=== PATIENT | male | born 1935 | race Caucasian/White ===

== ENCOUNTER 2016-12-19 02:25 | Emergency (ER) | payer MEDICARE, MEDICAID ==
[~2016-12-19] VITALS: Ht 172.7 cm; Wt 77.3 kg
[2016-12-19 02:31] VITALS: Ht 172.7 cm; Wt 77.3 kg
[2016-12-19 03:29] LABS: ADD SCAN DIFF NO
[2016-12-19 03:32] LABS: BASOPHILS % 0.4 % (0.0-2.0); EOSINOPHILS # 0.3 10^3/ul (0.0-0.5); EOSINOPHILS % 2.7 % (0.0-7.0); HEMOGLOBIN 8.9 g/dl (14.0-18.0); LYMPHOCYTES # 3.5 10^3/ul (0.8-2.9); MEAN CORPUSCULAR HEMOGLOBIN 28.2 pg (29.0-33.0); MEAN CORPUSCULAR HGB CONC 31.8 g/dl (32.0-37.0); MEAN CORPUSCULAR VOLUME 88.6 fl (82.0-101.0); MEAN PLATELET VOLUME 10.2 fl (7.4-10.4); MONOCYTE # 0.9 10^3/ul (0.3-0.9); MONOCYTES % 9.6 % (0.0-11.0); NEUTROPHIL # 4.7 10^3/ul (1.6-7.5); PLATELET COUNT 526 10^3/UL (140-415); RED BLOOD COUNT 3.16 10^6/ul (4.70-6.10); RED CELL DISTRIBUTION WIDTH 17.2 % (11.5-14.5); WHITE BLOOD COUNT 9.4 10^3/ul (4.8-10.8)
--- NOTE | 2016-12-19 03:47 | RADRPT ---
PROCEDURE: Noncontrast CT Head. CLINICAL INDICATION: Altered mental status TECHNIQUE: Noncontrast CT of the head was obtained. The administered radiation dose was CTDI vol = 45 mGy, DLP = 810 mGy-cm. COMPARISON: No pertinent prior examinations were submitted for comparison. FINDINGS: The ventricles and cortical sulci are moderately enlarged. There is moderate to marked decreased at tenuation within the periventricular and subcortical white matter compatible with chronic microvascu lar changes. There is no acute intracranial hemorrhage or extra-axial fluid collection. There is no mass effect . No midline shift is identified. There is no loss of lagos-white differentiation to suggest acute in farction. The orbits are within normal limits. The paranasal sinuses are well aerated. No destructive osseous lesion is identified. IMPRESSION: No acute findings. Moderate diffuse parenchymal volume loss and moderate to marked chronic microvas cular changes. RPTAT: HIKT .Gold Darling MD, MD Date Time Electronically viewed and signed by .Gold Darling MD, MD on 12/19/2016 03:46 .T/
[2016-12-19 03:49] LABS: INR 1.16; PROTIME 14.9 Sec (12.2-14.2); PT RATIO 1.2
[2016-12-19 03:51] LABS: URINE BILIRUBIN (Dip) NEGATIVE (NEGATIVE); URINE BLOOD (Dip) NEGATIVE (NEGATIVE); URINE COLOR YELLOW (YELLOW); URINE GLUCOSE (Dip) NEGATIVE (NEGATIVE); URINE KETONES (Dip) NEGATIVE (NEGATIVE); URINE LEUKOCYTE ESTERASE (Dip) NEGATIVE (NEGATIVE); URINE NITRITE (Dip) NEGATIVE (NEGATIVE); URINE UROBILINOGEN (Dip) 0.2 E.U./dL (0.1-1.0)
[2016-12-19 03:51] LABS: PARTIAL THROMBOPLASTIN TIME 41.6 Sec (25.0-35.0)
--- NOTE | 2016-12-19 03:51 | RADRPT ---
PROCEDURE: CHEST - 1 VIEW CLINICAL INDICATION: 81-year-old male with shortness of breath and sepsis. TECHNIQUE: A single frontal AP portable view of the chest was performed. The images were reviewed on a PACS workstation. COMPARISON: Chest x-ray June 11, 2016 performed at [facility]. FINDINGS: The cardiomediastinal silhouette is within normal limits. Chronic lung changes are present. There is mild left basilar subsegmental atelectasis versus scarring. There is no evidence for congestive heart failure. There is no evidence for pneumothorax. Surgical clips are seen within the esophagoga stric junction region. There appears to be mild erosion of the distal clavicles bilaterally without interval change. Degenerative changes are present within the spine. IMPRESSION: 1. Chronic lung changes. 2. Mild left basilar subsegmental atelectasis versus scarring. 3. Surgical clips within the esophagogastric junction region. .Christian Fernandes MD, MD Date Time Electronically viewed and signed by .Christian Fernandes MD, on 12/19/2016 03:51 .M/
[2016-12-19 03:55] LABS: ALANINE AMINOTRANSFERASE 109 IU/L (13-69); ALBUMIN 2.8 g/dl (3.3-4.9); ALKALINE PHOSPHATASE 232 IU/L (42-121); ANION GAP 13 (8-16); ASPARTATE AMINO TRANSFERASE 112 IU/L (15-46); BLOOD UREA NITROGEN 50 mg/dl (7-20); CALCIUM 8.5 mg/dl (8.4-10.2); CARBON DIOXIDE 27 mmol/L (21-31); CHLORIDE 109 mmol/L (97-110); CREATININE 1.17 mg/dl (0.61-1.24); GLUCOSE 110 mg/dl (70-220); POTASSIUM 4.7 mmol/L (3.5-5.1); SODIUM 144 mmol/L (135-144); TOTAL PROTEIN 7.4 g/dl (6.1-8.1)
[2016-12-19 04:20] LABS: ADD UMIC NO; URINE TOTAL PROTEIN (Dip) NEGATIVE (NEGATIVE)
[2016-12-19 04:21] LABS: TROPONIN-I < 0.012 ng/ml (0.00-0.12)
[2016-12-19 04:53] VITALS: TEMP 97.8
--- NOTE | 2016-12-19 06:34 | ERD ---
ER Documentation Chief Complaint Date/Time DATE: 12/19/16 TIME: 06:26 Chief Complaint lethargic,from [facility] This 81-year-old male who is debilitated was sent from a longterm for having more altered mental status than usual. According to paramedics all the nurse could tell them for the reason that they're sending hospitals because his eyes looked differently than they normally do. Patient himself is nonverbal at baseline. No fevers reported. No other history of present illness was sent along with the patient. ROS Unobtainable Allergies Allergies: Coded Allergies: No Known Allergy (Unverified , 12/19/16) PMhx/Soc History of Surgery: Yes (GT placement) Hx Respiratory Disorders: Yes (COPD,aspiration PNA) Hx Psychiatric Problems: Yes (dementia) Hx Miscellaneous Medical Probl: Yes (dysphagia) Smoking Status: Unknown if ever smoked Physical Exam Vitals Vital Signs Date Time Temp Pulse Resp B/P Pulse Ox O2 Delivery O2 Flow Rate FiO2 12/19/16 04:53 97.8 109 18 134/91 100 Nasal Cannula 2.0 12/19/16 02:56 Nasal Cannula 2 12/19/16 02:31 97.7 108 18 92/58 95 Physical Exam Const: [] No acute distress Head: Atraumatic Eyes: Normal Conjunctiva, EOMI, PERRLA. Patient keeps eyes open and appears to be looking at things but does not track with eyes or attempt to look at any stimulus. ENT: Normal External Ears, Nose and Mouth., Tympanic membranes within normal lives bilaterally, oropharynx within normal limits Neck: Full range of motion..~No JVD Resp: Clear to auscultation bilaterally Cardio: Regular mild tachycardia, no murmurs Abd: Soft,, non distended. Normal bowel sounds Skin: No petechiae or rashes, pale Ext: No cyanosis, or edema Neur: Awake, has some movement of extremities, does not have purposeful movement. Unable to cooperate with neuro exam Psych: Appears calm. Result Diagram: 12/19/16 0309 12/19/16 0309 Results 24 hrs Laboratory Tests Test 12/19/16 03:09 12/19/16 03:21 12/19/16 05:35 White Blood Count 9.410^3/ul Red Blood Count 3.1610^6/ul Hemoglobin 8.9g/dl Hematocrit 28.0% Mean Corpuscular Volume 88.6fl Mean Corpuscular Hemoglobin 28.2pg Mean Corpuscular Hemoglobin Concent 31.8g/dl Red Cell Distribution Width 17.2% Platelet Count 93584^3/UL Mean Platelet Volume 10.2fl Neutrophils % 50.0% Lymphocytes % 37.0% Monocytes % 9.6% Eosinophils % 2.7% Basophils % 0.4% Nucleated Red Blood Cells % 0.0/100WBC Neutrophils # 4.710^3/ul Lymphocytes # 3.510^3/ul Monocytes # 0.910^3/ul Eosinophils # 0.310^3/ul Basophils # 0.010^3/ul Nucleated Red Blood Cells # 0.010^3/ul Prothrombin Time 14.9Sec Prothrombin Time Ratio 1.2 INR International Normalized Ratio 1.16 Activated Partial Thromboplast Time 41.6Sec Sodium Level 144mmol/L Potassium Level 4.7mmol/L Chloride Level 109mmol/L Carbon Dioxide Level 27mmol/L Anion Gap 13 Blood Urea Nitrogen 50mg/dl Creatinine 1.17mg/dl Glucose Level 110mg/dl Lactic Acid Level 1.4mmol/L 1.2mmol/L Calcium Level 8.5mg/dl Total Bilirubin 0.0mg/dl Direct Bilirubin 0.00mg/dl Indirect Bilirubin 0.0mg/dl Aspartate Amino Transf (AST/SGOT) 112IU/L Alanine Aminotransferase (ALT/SGPT) 109IU/L Alkaline Phosphatase 232IU/L Troponin I < 0.012ng/ml Total Protein 7.4g/dl Albumin 2.8g/dl Globulin 4.60g/dl Albumin/Globulin Ratio 0.60 Urine Color YELLOW Urine Clarity CLEAR Urine pH 5.5 Urine Specific [place] 1.025 Urine Ketones NEGATIVE Urine Nitrite NEGATIVE Urine Bilirubin NEGATIVE Urine Urobilinogen 0.2 E.U./dL Urine Leukocyte Esterase NEGATIVE Urine Hemoglobin NEGATIVE Urine Glucose NEGATIVE% Urine Total Protein NEGATIVE Procedures/MDM 81-year-old male sent emergency room for unclear reasons. I did speak with Dr. Sims, the patient's physician. According to the description patient is not communicative at baseline and is currently at baseline. Complete workup was done for sepsis or any other acute process. The patient has no cardiac ischemia , no signs of infection with normal white count. No lactic acidosis. Patient remains with a heart rate of just over 100. I described his workup to Dr. Sims he says that there is no reason to admit the patient to the hospital. [facility] He was treated with 1 L of normal saline. EKG interpretation: Sinus tachycardia rate of 104, left anterior fascicular block, left axis deviation, no ST-T wave changes concerning for acute ischemia youth nutritional monitor interpretation: Mild sinus tachycardia alternating with normal sinus rhythm in the 90s, no arrhythmias Chest x-ray interpretation: I see no acute process, no infiltrates, no widened mediastinum, no pneumothorax, no pulmonary edema, no fractures. CT head interpretation: I see no acute process, no hemorrhage, no mass effect no midline shift, no skull fractures Departure Diagnosis: Primary Impression: Altered level of consciousness Additional Impressions: Thrombocytosis Anemia Protein calorie malnutrition BRADLY HAWLEY DO Dec 19, 2016 06:34
[2016-12-19 08:58] VITALS: BP 123/71; PULSE 101; RESP 18
== END 2016-12-19 09:09 | disposition home or self-care (01) ==
LOC: E/R 02:25
DX: R40.4 Transient alteration of awareness (principal); D47.3 Essential (hemorrhagic) thrombocythemia; D64.9 Anemia, unspecified; E46 Unspecified protein-calorie malnutrition; J44.9 Chronic obstructive pulmonary disease, unspecified; R40.2142 Coma scale, eyes open, spontaneous, at arrival to emergency department; R40.2352 Coma scale, best motor response, localizes pain, at arrival to emergency department; R40.2212 Coma scale, best verbal response, none, at arrival to emergency department
CPT/HCPCS: 36415; 70450; 71010; 80053; 81003; 83605; 84484; 85025; 85610; 85730; 87040; 87086; 93005

== ENCOUNTER 2017-03-05 01:59 | Inpatient (IN) | payer MEDICAID, MEDICARE ==
[2017-03-05] VITALS (60 sets, daily range): BP systolic 63–121; BP diastolic 38–88; PULSE 85–128; RESP 16–28; TEMP 98.5; Ht 165.1 cm; Wt 54.7 kg
[~2017-03-05] VITALS: Ht 165.1 cm; Wt 54.7 kg
[2017-03-05] MEDS ORDERED: PIPER-TAZO 3.375 GM IV (PMX) 100 ML IVPB STA (02:07)
[2017-03-05] MEDS ORDERED: ONDANSETRON 4 MG INJ IV STA (02:48)
[2017-03-05 02:50] LABS: ADD SCAN DIFF NO
[2017-03-05 02:56] LABS: BASOPHILS % 0.2 % (0.0-2.0); EOSINOPHILS % 0.2 % (0.0-7.0); HEMATOCRIT 34.7 % (42.0-52.0); HEMOGLOBIN 11.1 g/dl (14.0-18.0); LYMPHOCYTES # 2.1 10^3/ul (0.8-2.9); LYMPHOCYTES % 12.3 % (15.0-51.0); MEAN CORPUSCULAR HEMOGLOBIN 29.1 pg (29.0-33.0); MEAN CORPUSCULAR VOLUME 90.8 fl (82.0-101.0); MEAN PLATELET VOLUME 10.3 fl (7.4-10.4); MONOCYTE # 1.1 10^3/ul (0.3-0.9); MONOCYTES % 6.3 % (0.0-11.0); NEUTROPHIL # 14.1 10^3/ul (1.6-7.5); NEUTROPHILS % 80.5 % (39.0-77.0); PLATELET COUNT 593 10^3/UL (140-415); RED BLOOD COUNT 3.82 10^6/ul (4.70-6.10); RED CELL DISTRIBUTION WIDTH 15.4 % (11.5-14.5); WHITE BLOOD COUNT 17.4 10^3/ul (4.8-10.8)
[2017-03-05] MEDS ORDERED: SOD CHLORIDE 0.9% 500 ML IV ONE ×4 (03:00→14:00)
[2017-03-05] MEDS ORDERED: SOD CHLORIDE 0.9% 1,000 ML IV ONE (03:00)
[2017-03-05 03:12] LABS: ADD UMIC YES; UR ASCORBIC ACID 40 mg/dL (NEGATIVE); UR BACTERIA MODERATE /HPF (NONE SEEN); UR BILIRUBIN (Dip) NEGATIVE (NEGATIVE); UR BLOOD (Dip) NEGATIVE (NEGATIVE); UR CLARITY SLIGHTLY CLOUDY (CLEAR); UR COLOR YELLOW (YELLOW); UR GLUCOSE (Dip) NEGATIVE (NEGATIVE); UR KETONES (Dip) NEGATIVE (NEGATIVE); UR LEUKOCYTE ESTERASE (Dip) 1+ Leu/ul (NEGATIVE); UR MUCUS FEW /HPF (NONE SEEN); UR NITRITE (Dip) NEGATIVE (NEGATIVE); UR RBC 6 /HPF (0-5); UR SPECIFIC GRAVITY (Dip) 1.023 (1.003-1.030); UR TOTAL PROTEIN (Dip) 1+ mg/dl (NEGATIVE); UR UROBILINOGEN (Dip) NEGATIVE (NEGATIVE)
[2017-03-05 03:17] LABS: ALANINE AMINOTRANSFERASE 108 IU/L (13-69); ALBUMIN 4.2 g/dl (3.3-4.9); ALBUMIN/GLOBULIN RATIO 0.95; ALKALINE PHOSPHATASE 193 IU/L (42-121); ANION GAP 19 (8-16); ASPARTATE AMINO TRANSFERASE 84 IU/L (15-46); BLOOD UREA NITROGEN 47 mg/dl (7-20); CALCIUM 9.4 mg/dl (8.4-10.2); CARBON DIOXIDE 26 mmol/L (21-31); CHLORIDE 103 mmol/L (97-110); GLUCOSE 121 mg/dl (70-220); SODIUM 143 mmol/L (135-144); TOTAL PROTEIN 8.6 g/dl (6.1-8.1)
[2017-03-05 03:33] LABS: TROPONIN-I < 0.012 ng/ml (0.00-0.12)
--- NOTE | 2017-03-05 03:44 | RADRPT ---
PROCEDURE: XR Chest. CLINICAL INDICATION: Sepsis TECHNIQUE: Portable single view of the chest COMPARISON: 12/19/2016 FINDINGS: Top normal heart size and clips about the epigastrium again seen. Aortic calcification. Increased interstitial markings of the lungs is again seen but no definite focal infiltrate, pleural effusion, or overt congestive heart failure. Mild degenerative change of the spine and shoulders. IMPRESSION: Aortic atherosclerosis. Interstitial prominence of the lungs which may be due to a degree of mild pu lmonary fibrosis. No definite alveolar infiltrate. RPTAT: HLBE Physician Krupa Date Time Electronically viewed and signed by Katherine Teran Physician on 03/05/2017 03:43 LE/
[2017-03-05] MEDS ORDERED: ACETAMINOPHEN 325 MG TAB PO PRN (04:00)
[2017-03-05] MEDS ORDERED: ONDANSETRON 4 MG INJ IV PRN ×2 (04:00→05:00)
[2017-03-05 04:17] LABS: INR 1.04; PROTIME 13.6 Sec (12.2-14.2); PT RATIO 1.1
[2017-03-05 04:18] LABS: PARTIAL THROMBOPLASTIN TIME 35.5 Sec (25.0-35.0)
[2017-03-05] MEDS: SOD CHLORIDE 0.9% 1,000 ML IV SCH ×3 (04:36→20:52)
--- NOTE | 2017-03-05 04:41 | RADRPT ---
PROCEDURE: CT ABDOMEN/PELVIS WITHOUT CONTRAST CLINICAL INDICATION: 81-year-old male with abdominal pain, vomiting and sepsis. TECHNIQUE: The study was performed utilizing a [employer] VCT 64-slice CT scanner. Direct axia l sections were obtained through the abdomen and pelvis without the use of intravenous contrast mate rial. Sagittal and coronal reformations were obtained. One or more of the following dose reduction t echniques were utilized: automated exposure control, adjustment of the mA and/or kV according to pat ient's size or use of iterative reconstruction technique. The images were reviewed on a PACS workst [employer]. CTD/vol = 12.1 mGy; Total Exam DLP = 626.3 mGy-cm. COMPARISON: None. FINDINGS: Extensive coronary artery calcifications are partially visualized. There is trace pericardial effus ion. There is evidence for fibrotic changes within the lung bases. There is no evidence for signif icant pleural effusion. The liver has a normal size and contour without focal areas of abnormal den sity. No intrahepatic nor extrahepatic biliary ductal dilatation is seen. The gallbladder demonstrat es no wall thickening nor pericholecystic fluid. No biliary stones are evident. The pancreas is with out areas of abnormal attenuation. The spleen is identified and has a normal size without abnormal density. The adrenal glands are unremarkable. There is a right lower pole renal cyst present measuri ng approximately 2.8 x 3.5 x 3.1 cm with small peripheral calcification (Bosniak type 2). The left kidney is without abnormal density, calculi or obstruction. No hydroureteronephrosis nor nephrourete rolithiasis is evident. The urinary bladder is decompressed and contains a Mercer catheter. Multiple surgical clips are seen within the esophagogastric junction region creating artifact. There is a pe rcutaneous gastrostomy tube within the gastric antrum region of the stomach. There is mild retained stool throughout the colon with large fecal impaction measuring approximately 14.6 x 9.8 x 8.8 cm. T here are small diverticula identified scattered throughout the colon but without surrounding inflamm atory changes. The appendix is visualized and is without abnormal thickening or surrounding inflamma tory reaction. There is no significant free fluid. A penile implant is partially visualized. The ao rtoiliac vessels are diffusely calcified but without aneurysmal dilatation. Degenerative changes are present throughout the spine. Dystrophic calcification is seen adjacent to the posterior right acet abular region. Dystrophic calcification is identified anterior to the hip regions bilaterally. IMPRESSION: 1. Retained stool throughout the colon with large fecal impaction. 2. Gastrostomy tube within the stomach. 3. Minimal diffuse colonic diverticulosis. 4. No CT evidence for appendicitis. 5. Right lower pole renal cyst (Bosniak type 2). 6. Decompressed bladder containing a Mercer catheter. 7. Numerous surgical clips within the esophagogastric junction region. 8. Fibrotic changes within the lung bases. 9. Extensive vascular calcifications. 10. Penile implant. 12. Degenerative changes within the spine. .Christian Fernandes MD, MD Date Time Electronically viewed and signed by .Christian Fernandes MD, MD on 03/05/2017 04:41 .Roberth/
[2017-03-05] MEDS ORDERED: ACETAMINOPHEN 650 MG SUPP PR PRN (05:00)
[2017-03-05] MEDS ORDERED: VANCOMYCIN IV PER PHARMACY XX SCH (05:00)
--- NOTE | 2017-03-05 05:36 | ERA ---
ER Documentation Chief Complaint Date/Time DATE: 03/05/17 TIME: 05:28 Chief Complaint [facility] DUE TO LOW SPO2; CURRENTLY BEING TREATED W/ ABX HPI C1-year-old male was brought in by paramedics from his longterm secondary to lower oxygen saturation. Patient is normally on 2 L of oxygen. And the lowest oxygen saturation a paramedics got was 90% on room air. Patient is nonverbal at baseline and has contractures of his body at baseline. Incomplete paperwork was sent with the patient and her only 3 pages 1 of them is a vancomycin trough. Other medications are unknown. Is also not known what infection the patient was being treated for. ROS Unobtainable Allergies Allergies: Coded Allergies: No Known Allergy (Unverified , 12/19/16) PMhx/Soc History of Surgery: Yes (GT placement) Hx Respiratory Disorders: Yes (COPD,aspiration PNA) Hx Psychiatric Problems: Yes (dementia) Hx Miscellaneous Medical Probl: Yes (dysphagia) Smoking Status: Unknown if ever smoked Physical Exam Vitals Vital Signs Date Time Temp Pulse Resp B/P Pulse Ox O2 Delivery O2 Flow Rate FiO2 03/05/17 02:10 99.5 141 30 149/133 100 Physical Exam Const: [] Moderate distress Head: Atraumatic Eyes: Normal Conjunctiva, EOMI, PRL ENT: Normal External Ears, Nose and Mouth. Dry mucous membranes of the mouth. Neck: Supple, no JVD Resp: Decreased bibasilar breath sounds, mild tachypnea Cardio: Regular tachycardia, no murmurs Abd: Soft, non tender, non distended. Normal bowel sounds Skin: No petechiae or rashes Back: No deformities. Ext: No cyanosis, or edema Neur: Awake, nonverbal, unable to perform any neuro exam as patient cannot cooperate. Unknown if he is moving all of his extremities Result Diagram: 03/05/17 0230 03/05/17 0230 Results 24 hrs Laboratory Tests Test 03/05/17 02:30 White Blood Count 17.410^3/ul Red Blood Count 3.8210^6/ul Hemoglobin 11.1g/dl Hematocrit 34.7% Mean Corpuscular Volume 90.8fl Mean Corpuscular Hemoglobin 29.1pg Mean Corpuscular Hemoglobin Concent 32.0g/dl Red Cell Distribution Width 15.4% Platelet Count 65484^3/UL Mean Platelet Volume 10.3fl Neutrophils % 80.5% Lymphocytes % 12.3% Monocytes % 6.3% Eosinophils % 0.2% Basophils % 0.2% Nucleated Red Blood Cells % 0.0/100WBC Neutrophils # 14.110^3/ul Lymphocytes # 2.110^3/ul Monocytes # 1.110^3/ul Eosinophils # 0.010^3/ul Basophils # 0.010^3/ul Nucleated Red Blood Cells # 0.010^3/ul Prothrombin Time 13.6Sec Prothrombin Time Ratio 1.1 INR International Normalized Ratio 1.04 Activated Partial Thromboplast Time 35.5Sec Urine Color YELLOW Urine Clarity SLIGHTLY CLOUDY Urine pH 7.0 Urine Specific [place] 1.023 Urine Ketones NEGATIVEmg/dL Urine Nitrite NEGATIVEmg/dL Urine Bilirubin NEGATIVEmg/dL Urine Urobilinogen NEGATIVEmg/dL Urine Leukocyte Esterase 1+Tomi/ul Urine Microscopic RBC 6/HPF Urine Microscopic WBC 19/HPF Urine Bacteria MODERATE/HPF Urine Mucus FEW/HPF Urine Hemoglobin NEGATIVEmg/dL Urine Glucose NEGATIVEmg/dL Urine Total Protein 1+mg/dl Sodium Level 143mmol/L Potassium Level 5.0mmol/L Chloride Level 103mmol/L Carbon Dioxide Level 26mmol/L Anion Gap 19 Blood Urea Nitrogen 47mg/dl Creatinine 1.00mg/dl Glucose Level 121mg/dl Lactic Acid Level 3.4mmol/L Calcium Level 9.4mg/dl Total Bilirubin 0.0mg/dl Direct Bilirubin 0.00mg/dl Indirect Bilirubin 0.0mg/dl Aspartate Amino Transf (AST/SGOT) 84IU/L Alanine Aminotransferase (ALT/SGPT) 108IU/L Alkaline Phosphatase 193IU/L Troponin I < 0.012ng/ml Total Protein 8.6g/dl Albumin 4.2g/dl Globulin 4.40g/dl Albumin/Globulin Ratio 0.95 Current Medications Medications (Trade) Dose Ordered Sig/Killian Route PRN Reason Start Time Stop Time Status Last Admin Dose Admin Piperacillin Sod/ Tazobactam Sod 100 ml @ 200 mls/hr ONCE STAT IVPB 03/05/17 02:07 03/05/17 02:36 DC 03/05/17 02:54 Sodium Chloride 1,000 ml @ 1,000 mls/hr Q1H ONCE IV 03/05/17 03:00 03/05/17 03:59 DC 03/05/17 02:54 Sodium Chloride (NS) 500 ml @ 500 mls/hr Q1H ONCE IV 03/05/17 03:00 03/05/17 03:59 DC 03/05/17 02:55 Ondansetron HCl 4 mg 4 mg ONCE STAT IV 03/05/17 02:48 03/05/17 02:49 DC 03/05/17 02:54 Sodium Chloride (NS) 500 ml @ 500 mls/hr Q1H ONCE IV 03/05/17 03:30 03/05/17 04:29 DC 03/05/17 04:38 Ondansetron HCl (Zofran Inj) 4 mg BRIDGE ORDER PRN IV NAUSEA AND/OR VOMITING 03/05/17 04:00 03/05/17 04:45 DC Acetaminophen 650 mg 650 mg ER BRIDGE PRN PO MILD PAIN/FEVER 03/05/17 04:00 03/05/17 04:45 DC Sodium Chloride (NS) 1,000 ml @ 70 mls/hr [id number] IV 03/05/17 04:36 Ondansetron HCl (Zofran Inj) 4 mg Q6H PRN IV NAUSEA AND/OR VOMITING 03/05/17 05:00 Acetaminophen (Tylenol Supp) 650 mg Q4H PRN SD PAIN LEVEL 1-3 OR FEVER 03/05/17 05:00 Pantoprazole (Protonix Iv) 40 mg DAILY@06 IV 03/05/17 06:00 Vancomycin HCl VANCOMYCIN PER PHARMACY PER PROTOCOL XX 03/05/17 05:00 UNV Piperacillin Sod/ Tazobactam Sod (Zosyn 2.25gm/ 50ml (Pmx)) 50 ml @ 100 mls/hr Q6 IVPB 03/05/17 06:00 Procedures/MDM UTI with sepsis and unfortunate debilitated patient. Patient was given Zosyn immediately. Also given 30 cc/kg of IV fluid as well as an additional 500 mL. Patient's heart rate only mildly improved with fluid administration. Oxygen saturation remained in the 90s on room air. Does have elevated liver function tests. Abdomen pelvis CT shows no infectious process but positive for severe constipation with impaction. No apparent pneumonia on basilar CAT scan as well as chest x-ray. Spoke with Dr. Figueroa will be admitting the patient and prefers to the patient go to the ICU. EKG interpretation: Sinus tachycardia rate of 145, ST depressions in precordial leads suspicious for infection, possibly rate related, left axis deviation, normal intervals radiation monitor interpretation: Sinus tachycardia without other arrhythmia arrhythmia Chest x-ray: I see no acute process, no infiltrates, no pulmonary edema, no pneumothorax, no fractures CT abdomen pelvis interpretation: Severe constipation, I see no obvious obstruction, no abnormal fat stranding, no free air, no acute fractures Critical care time 43 minutes: This includes treatment of severe sepsis and debilitated male, very careful fluid administration, early antibiotic administration, chart review, multiple visits patient's bedside to reassess status, treatment of unstable vital signs, discussion with admitting doctor. This does not include any billable procedure Departure Diagnosis: Primary Impression: Sepsis secondary to UTI Additional Impressions: Dehydration Lactic acidosis Condition: Critical BRADLY HAWLEY DO Mar 05, 2017 05:36
[2017-03-05] MEDS ORDERED: VANCOMYCIN 1 GM in NS 250 ML IVPB SCH (07:00)
--- NOTE | 2017-03-05 07:31 | HP ---
Date/Time of Note Date/Time of Note DATE: 03/05/17 TIME: 07:11 Assessment/Plan VTE Prophylaxis VTE Prophylaxis Intervention: SCD's Assessment/Plan Chief Complaint/Hosp Course This is a 81-year-old male being admitted to the ICU floor for: #1 Urosepsis: This likely to be catheter induced as patient did present with a Montejo catheter. Patient was previously on antibiotics for an unknown cause as well. At the current time we will treat patient with broad-spectrum antibiotics of IV Vanco and Zosyn. Renally dose. Await urine and blood cultures. Switch out montejo catheter. #2 respiratory distress: Patient initially was found to be desatting down to the 70s. As per the nurse when patient turned to his side he did vomit and subsequently his respirations and oxygen saturation improved. Likely could be a component of aspiration pneumonia. Patient is currently already right now on IV vancomycin and Zosyn. Chest x-ray did not show any overt signs of pneumonia. There were some possible signs of pulmonary fibrosis. CT of the abdomen and pelvis did not show any overt signs of any pneumonia either as well. #3 tachycardia: This likely could be secondary to patient's infectious process. His EKG did show some ST depressions which likely could be due secondary to demand. Will trend troponins. Provide gentle IV fluid hydration and antibiotic support. Consult cardiology. #4 lactic acidosis: Likely secondary to #1 and #2. Will continue to trend. Provide IV fluid hydration and antibiotic. #5 dementia: Patient is nonverbal and unable to follow commands. This is a very unfortunate situation for this patient, I feel that that he likely does not have much of a quality of life at the nursing facility even prior to his current infectious process. Patient likely will benefit from palliative care consult for advanced directives as well as goals of care likely will need to get in touch with the family. Will consult case management/social work to help us in getting in touch with any family members to discuss the patient case and goals of care. #6 Fecal impaction: once stable from infectious standpoint, will need to address with stool softeners and possible GI consult. #6 DVT and GI prophylaxis: SCDs, Protonix Further treatment strategy will be implemented as per the clinical course. We will need to obtain medical records from his nursing facility and list of medications. Greater than 40 minutes of critical care time was spent on the patient and performed a history and physical and the assessment and plan. Problems: HPI/ROS Admit Date/Time Admit Date/Time Hx of Present Illness Chief complaint: Oxygen desaturation This is a-year-old male was brought in by paramedics from his residential secondary to lower oxygen saturation. Patient is normally on 2 L of oxygen. And the lowest oxygen saturation the paramedics got was 90% on room air. Patient is nonverbal at baseline and has contractures of his body at baseline. Incomplete paperwork was sent with the patient and there was a Vanco trough order. Other medications are unknown. Is also not known what infection the patient was being treated for. Of note there is no advanced directive for pulse form in the patient's chart. Apparently the patient's son did call the ED however no information was able to be obtained. Phone number of the son was not known. Allergies: NKDA Medications: Unknown ROS Subjective hx not possible: pt non-verbal, pt critical status PMH/Family/Social Past Medical History Dementia, COPD, aspiration pneumonia (this was based on previous EMR documentation from her previous visit) Past Surgical History Unknown and unable to obtain at the patient secondary to his clinical condition Family History Significant Family History: other (Unknown and unable to obtain secondary to patient's clinical condition) Social History Unknown and unable to obtain secondary to patient's clinical condition Smoking Status: Unknown if ever smoked Exam/Review of Systems Vital Signs Vitals Vital Signs Date Time Temp Pulse Resp B/P Pulse Ox O2 Delivery O2 Flow Rate FiO2 03/05/17 06:35 101.9 134 20 101/44 95 Room Air Exam Exam General: Patient is lying in bed, he is awake however he does not respond to verbal commands, he does appear contracted, he is also mumbling HEENT: Atraumatic, normocephalic. The pupils are equal, round and reactive. Extraocular motor are intact Neck: Supple with full range of motion. No rigidity or meningismus Chest: Nontender Lungs: Clear to auscultation bilaterally no crackles rales or wheezing Heart: Normal S1-S2, Regular rhythm and rate. No murmur, S3, or S4 Abdomen: Soft , G-tube in place, nondistended , bowel sounds are present. No guarding no rebound tenderness , No masses or organomegaly. No costovertebral temporal angle mass Extremities: Normal to inspection, no edema no cyanosis Neurologic: Awake, though patient is nonverbal and not able to appropriately respond to questions or follow commands this likely secondary to patient's baseline dementia as well as possible infectious process at this time. Genitourinary: Montejo catheter in place which was from the nursing facility, cloudy urine Additional Comments EKG interpretation: Sinus tachycardia rate of 145, ST depressions in precordial leads suspicious for infection, possibly rate related, left axis deviation, normal intervals property assessment monitor interpretation: Sinus tachycardia without other arrhythmia arrhythmia As per ED physician documentation PROCEDURE: CT ABDOMEN/PELVIS WITHOUT CONTRAST CLINICAL INDICATION: 81-year-old male with abdominal pain, vomiting and sepsis. TECHNIQUE: The study was performed utilizing a [employer] 64-slice CT scanner. Direct axial sections were obtained through the abdomen and pelvis without the use of intravenous contrast material. Sagittal and coronal reformations were obtained. One or more of the following dose reduction techniques were utilized: automated exposure control, adjustment of the mA and/ or kV according to patient's size or use of iterative reconstruction technique. The images were reviewed on a PACS workstation. CTD/vol = 12.1 mGy; Total Exam DLP = 626.3 mGy-cm. COMPARISON: None. FINDINGS: Extensive coronary artery calcifications are partially visualized. There is trace pericardial effusion. There is evidence for fibrotic changes within the lung bases. There is no evidence for significant pleural effusion. The liver has a normal size and contour without focal areas of abnormal density. No intrahepatic nor extrahepatic biliary ductal dilatation is seen. The gallbladder demonstrates no wall thickening nor pericholecystic fluid. No biliary stones are evident. The pancreas is without areas of abnormal attenuation. The spleen is identified and has a normal size without abnormal density. The adrenal glands are unremarkable. There is a right lower pole renal cyst present measuring approximately 2.8 x 3.5 x 3.1 cm with small peripheral calcification (Bosniak type 2). The left kidney is without abnormal density, calculi or obstruction. No hydroureteronephrosis nor nephroureterolithiasis is evident. The urinary bladder is decompressed and contains a Montejo catheter. Multiple surgical clips are seen within the esophagogastric junction region creating artifact. There is a percutaneous gastrostomy tube within the gastric antrum region of the stomach. There is mild retained stool throughout the colon with large fecal impaction measuring approximately 14.6 x 9.8 x 8.8 cm. There are small diverticula identified scattered throughout the colon but without surrounding inflammatory changes. The appendix is visualized and is without abnormal thickening or surrounding inflammatory reaction. There is no significant free fluid. A penile implant is partially visualized. The aortoiliac vessels are diffusely calcified but without aneurysmal dilatation. Degenerative changes are present throughout the spine. Dystrophic calcification is seen adjacent to the posterior right acetabular region. Dystrophic calcification is identified anterior to the hip regions bilaterally. IMPRESSION: 1. Retained stool throughout the colon with large fecal impaction. 2. Gastrostomy tube within the stomach. 3. Minimal diffuse colonic diverticulosis. 4. No CT evidence for appendicitis. 5. Right lower pole renal cyst (Bosniak type 2). 6. Decompressed bladder containing a Montejo catheter. 7. Numerous surgical clips within the esophagogastric junction region. 8. Fibrotic changes within the lung bases. 9. Extensive vascular calcifications. 10. Penile implant. 12. Degenerative changes within the spine. .Christian Fernandes MD, MD Date Time Electronically viewed and signed by .Christian Fernandes MD, MD on 03/05/2017 04:41 PROCEDURE: XR Chest. CLINICAL INDICATION: Sepsis TECHNIQUE: Portable single view of the chest COMPARISON: 12/19/2016 FINDINGS: Top normal heart size and clips about the epigastrium again seen. Aortic calcification. Increased interstitial markings of the lungs is again seen but no definite focal infiltrate, pleural effusion, or overt congestive heart failure. Mild degenerative change of the spine and shoulders. IMPRESSION: Aortic atherosclerosis. Interstitial prominence of the lungs which may be due to a degree of mild pulmonary fibrosis. No definite alveolar infiltrate. RPTAT: [facility] Physician Krupa Date Time Electronically viewed and signed by Physician Krupa on 03/05/2017 03 :43 Labs Result Diagram: 03/05/17 0230 03/05/17 0230 Medications Medications Current Medications Sodium Chloride (NS) 1,000 ml @ 70 mls/hr [id number] IV ; Start 03/05/17 at 04:36 Ondansetron HCl (Zofran Inj) 4 mg Q6H PRN IV NAUSEA AND/OR VOMITING; Start 03/05 at 05:00 Acetaminophen (Tylenol Supp) 650 mg Q4H PRN [place] PAIN LEVEL 1-3 OR FEVER Last administered on 03/05/17t 06:54; Admin Dose 650 MG; Start 03/05/17 at 05:00 Pantoprazole 40 mg 40 mg DAILY@06 IV ; Start 03/05/17 at 06:00 Piperacillin Sod/ Tazobactam Sod 50 ml @ 100 mls/hr Q6 IVPB ; Start 03/05/17 at 06:00 Vancomycin HCl 250 ml @ 125 mls/hr ONCE IVPB ; Start 03/05/17 at 07:00; Stop 03/05/17 at 08:59 Vancomycin HCl/ Sodium Chloride (Vancocin/NS) 150 ml @ 75 mls/hr Q24H IVPB ; Start 03/06/17 at 07:00 AILYN OMER Mar 05, 2017 07:21
[2017-03-05] MEDS: PANTOPRAZOLE 40 MG INJ IV SCH (10:10)
[2017-03-05] MEDS: PIPER-TAZO 2.25 GM (PMX) 50 ML IVPB SCH ×3 (10:10→17:18)
[2017-03-05] MEDS ORDERED: NORepinephrine 8MG/250 ML (PMX 250 ML IV SCH ×2 (11:00)
--- NOTE | 2017-03-05 12:48 | CONS ---
Date/Time of Note Date/Time of Note DATE: 03/05/17 TIME: 12:43 Assessment/Plan Assessment/Plan Additional Assessment/Plan Severe sepsis Sinus tachycardia Encephalopathy Debilitated from nursing facility -Heart rate currently sinus tachycardia in the low 110s, tachycardia likely manifestation of patient's severe sepsis. We will continue IV fluids, blood pressure does not respond to fluid resuscitation, would consider initiation of IV Levophed for assistance. Antibiotics as per primary team. Withhold any antihypertensives at the current time. Check echocardiogram to evaluate LV function. Consultation Date/Type/Reason Admit Date/Time Type of Consultation: cv Reason for Consultation Tachycardia Hx of Present Illness This is an 81-year-old male from snf facility who is nonverbal with history obtained the medical chart as well as the staff. Patient transferred from nursing facility to the emergency room secondary to desaturation. Patient was on vancomycin at the nursing facility for unknown etiology. Patient also with an indwelling Mer[place] and this was changed out as well. Patient with episodes of tachycardia and for this reason cardiology consultation was requested. Patient currently being seen in the ICU. As per nursing staff present, blood pressure has been labile but responding to IV fluids. Unable to be performed at the current time given patient nonverbal Past Medical History Encephalopathy Hypertension Family History Significant Family History: no pertinent family hx Social History Alcohol Use: other (Unknown) Smoking Status: Unknown if ever smoked Other Social History From snf facility Exam/Review of Systems Vital Signs Vitals Vital Signs Date Time Temp Pulse Resp B/P Pulse Ox O2 Delivery O2 Flow Rate FiO2 03/05/17 08:12 123 20 102/67 98 Room Air 03/05/17 07:26 98.5 Exam Occasional tachypnea, no response to verbal stimuli, contracted Constitutional: frail Head: normocephalic Respiratory: other (Coarse breath sounds bilaterally, no wheezing) Cardiovascular: other (S1-S2 heard), regular rate and rhythm (Tachycardia) Gastrointestinal: bowel sounds, non-tender, soft Extremities: edema Results Result Diagram: 03/05/17 0230 03/05/17 0230 Results 24 hrs Laboratory Tests Test 03/05/17 02:30 03/05/17 05:31 03/05/17 10:37 White Blood Count 17.4 #H Red Blood Count 3.82 #L Hemoglobin 11.1 #L Hematocrit 34.7 #L Mean Corpuscular Volume 90.8 Mean Corpuscular Hemoglobin 29.1 Mean Corpuscular Hemoglobin Concent 32.0 Red Cell Distribution Width 15.4 H Platelet Count 593 H Mean Platelet Volume 10.3 Neutrophils % 80.5 H Lymphocytes % 12.3 L Monocytes % 6.3 Eosinophils % 0.2 Basophils % 0.2 Nucleated Red Blood Cells % 0.0 Neutrophils # 14.1 H Lymphocytes # 2.1 Monocytes # 1.1 H Eosinophils # 0.0 Basophils # 0.0 Nucleated Red Blood Cells # 0.0 Prothrombin Time 13.6 Prothrombin Time Ratio 1.1 INR International Normalized Ratio 1.04 Activated Partial Thromboplast Time 35.5 H Urine Color YELLOW Urine Clarity SLIGHTLY CLOUDY A Urine pH 7.0 Urine Specific [place] 1.023 Urine Ketones NEGATIVE Urine Nitrite NEGATIVE Urine Bilirubin NEGATIVE Urine Urobilinogen NEGATIVE Urine Leukocyte Esterase 1+ H Urine Microscopic RBC 6 H Urine Microscopic WBC 19 H Urine Bacteria MODERATE Urine Mucus FEW A Urine Hemoglobin NEGATIVE Urine Glucose NEGATIVE Urine Total Protein 1+ H Sodium Level 143 Potassium Level 5.0 Chloride Level 103 Carbon Dioxide Level 26 Anion Gap 19 H Blood Urea Nitrogen 47 H Creatinine 1.00 Glucose Level 121 Lactic Acid Level 3.4 H 2.3 H 2.4 H Calcium Level 9.4 Total Bilirubin 0.0 L Direct Bilirubin 0.00 Indirect Bilirubin 0.0 Aspartate Amino Transf (AST/SGOT) 84 H Alanine Aminotransferase (ALT/SGPT) 108 H Alkaline Phosphatase 193 H Troponin I < 0.012 Total Protein 8.6 H Albumin 4.2 Globulin 4.40 H Albumin/Globulin Ratio 0.95 Medications Medications Current Medications Sodium Chloride (NS) 1,000 ml @ 125 mls/hr Q8H IV Last administered on 04:36; Admin Dose 70 MLS/HR; Start 03/05/17 at 04:36 Ondansetron HCl (Zofran Inj) 4 mg Q6H PRN IV NAUSEA AND/OR VOMITING; Start 03/05 at 05:00 Acetaminophen (Tylenol Supp) 650 mg Q4H PRN [place] PAIN LEVEL 1-3 OR FEVER Last administered on 03/05/17 06:54; Admin Dose 650 MG; Start 03/05/17 at 05:00 Pantoprazole 40 mg 40 mg DAILY@06 IV Last administered on 03/05/17 10:10; Admin Dose 40 MG; Start 03/05/17 at 06:00 Piperacillin Sod/ Tazobactam Sod (Zosyn 2.25gm/ 50ml (Pmx)) 50 ml @ 100 mls/hr Q6 IVPB Last administered on 03/05/17t 10:10; Admin Dose 100 MLS/HR; Start at 06:00 Miscellaneous Information RANDOM VANCOMYCIN LEVEL 7... ONCE ONCE XX ; Start 06/13 at 05:00; Stop 03/06/17 at 05:01 Norepinephrine 250 ml @ 1.875 mls/ hr TITRATE IV ; Start 03/05/17 at 11:00 Sodium Chloride (NS) 500 ml @ 500 mls/hr Q1H ONCE IV ; Start 03/05/17 at 14:00; Stop 03/05/17 at 14:59 Procedures Procedures ECG done at 2:51 AM with sinus tachycardia at 145 bpm, QRS 60 ms, lateral ST segment depressions Bowen Ramirez DO Mar 05, 2017 12:48
[2017-03-05 13:11] LABS: TROPONIN-I 0.082 ng/ml (0.00-0.12)
[2017-03-05] MEDS ORDERED: LIDOCAINE 1% (MPF) 5 ML VIAL SC ONE (13:30)
[2017-03-05 13:31] LABS: CK-MB 3.26 ng/ml (0.0-2.4)
--- NOTE | 2017-03-05 14:50 | PN ---
Date/Time of Note Date/Time of Note DATE: 03/05/17 TIME: 14:47 Assessment/Plan VTE Prophylaxis VTE Prophylaxis Intervention: LMWH Lines/Catheters IV [facility]atheter [facility] (from [facility] Peripheral IV Urinary Cath still in place: Yes (MONTEJO IN PLACE UPON ARRIVAL TO HOSPITAL FROM [facility] ) Reason Cath still needed: skin wounds contaminated by urine Assessment/Plan Chief Complaint/Hosp Course S- delirium, cough, contracted. O- vss PE no pallor/ jvd reg s1s2; no m/r/g ctab/coarse bs+, nt nd; no r r g; peg c/d/i contractures; no edema/ Homans A/P 1. Sirs/ Sepsis- mod stable, cont atb. Aspiration Pneumonia? 2. Ac cystitis; change montejo once cultures are back/ sensative. 3. Ftt/Dementia; consider Hospice. 4. Constipation 5. Anemia Problems: Exam/Review of Systems Vital Signs Vitals Vital Signs Date Time Temp Pulse Resp B/P Pulse Ox O2 Delivery O2 Flow Rate FiO2 03/05/17 13:00 108 28 85/52 98 Room Air 03/05/17 12:00 99.3 Results Result Diagram: 03/05/17 0230 03/05/17 0230 Results 24 hrs Laboratory Tests Test 03/05/17 02:30 03/05/17 05:31 03/05/17 10:37 03/05/17 12:29 White Blood Count 17.4 #H Red Blood Count 3.82 #L Hemoglobin 11.1 #L Hematocrit 34.7 #L Mean Corpuscular Volume 90.8 Mean Corpuscular Hemoglobin 29.1 Mean Corpuscular Hemoglobin Concent 32.0 Red Cell Distribution Width 15.4 H Platelet Count 593 H Mean Platelet Volume 10.3 Neutrophils % 80.5 H Lymphocytes % 12.3 L Monocytes % 6.3 Eosinophils % 0.2 Basophils % 0.2 Nucleated Red Blood Cells % 0.0 Neutrophils # 14.1 H Lymphocytes # 2.1 Monocytes # 1.1 H Eosinophils # 0.0 Basophils # 0.0 Nucleated Red Blood Cells # 0.0 Prothrombin Time 13.6 Prothrombin Time Ratio 1.1 INR International Normalized Ratio 1.04 Activated Partial Thromboplast Time 35.5 H Urine Color YELLOW Urine Clarity SLIGHTLY CLOUDY A Urine pH 7.0 Urine Specific [place] 1.023 Urine Ketones NEGATIVE Urine Nitrite NEGATIVE Urine Bilirubin NEGATIVE Urine Urobilinogen NEGATIVE Urine Leukocyte Esterase 1+ H Urine Microscopic RBC 6 H Urine Microscopic WBC 19 H Urine Bacteria MODERATE Urine Mucus FEW A Urine Hemoglobin NEGATIVE Urine Glucose NEGATIVE Urine Total Protein 1+ H Sodium Level 143 Potassium Level 5.0 Chloride Level 103 Carbon Dioxide Level 26 Anion Gap 19 H Blood Urea Nitrogen 47 H Creatinine 1.00 Glucose Level 121 Lactic Acid Level 3.4 H 2.3 H 2.4 H 1.6 Calcium Level 9.4 Total Bilirubin 0.0 L Direct Bilirubin 0.00 Indirect Bilirubin 0.0 Aspartate Amino Transf (AST/SGOT) 84 H Alanine Aminotransferase (ALT/SGPT) 108 H Alkaline Phosphatase 193 H Troponin I < 0.012 0.082 Total Protein 8.6 H Albumin 4.2 Globulin 4.40 H Albumin/Globulin Ratio 0.95 Creatine Kinase 192 Creatine Kinase Index 1.7 Creatinine Kinase MB (Mass) 3.26 H Medications Medications Current Medications Sodium Chloride (NS) 1,000 ml @ 125 mls/hr Q8H IV Last administered on 04:36; Admin Dose 70 MLS/HR; Start 03/05/17 at 04:36 Ondansetron HCl (Zofran Inj) 4 mg Q6H PRN IV NAUSEA AND/OR VOMITING; Start 03/05 at 05:00 Acetaminophen (Tylenol Supp) 650 mg Q4H PRN [place] PAIN LEVEL 1-3 OR FEVER Last administered on 03/05/17 06:54; Admin Dose 650 MG; Start 03/05/17 at 05:00 Pantoprazole 40 mg 40 mg DAILY@06 IV Last administered on 03/05/17 10:10; Admin Dose 40 MG; Start 03/05/17 at 06:00 Piperacillin Sod/ Tazobactam Sod (Zosyn 2.25gm/ 50ml (Pmx)) 50 ml @ 100 mls/hr Q6 IVPB Last administered on 03/05/17 10:10; Admin Dose 100 MLS/HR; Start at 06:00 Miscellaneous Information RANDOM VANCOMYCIN LEVEL 7... ONCE ONCE XX ; Start 06/13 at 05:00; Stop 03/06/17 at 05:01 Norepinephrine 250 ml @ 1.875 mls/ hr TITRATE IV ; Start 03/05/17 at 11:00; Stop 03/05/17 at 22:00 Sodium Chloride 500 ml @ 500 mls/hr Q1H ONCE IV Last administered on 03/05/17t 13:18; Admin Dose 500 MLS/HR; Start 03/05/17 at 14:00; Stop 03/05/17 at 14:59 Norepinephrine/ Dextrose (Levophed/D5W) 500 ml @ 1.87 mls/hr TITRATE IV ; Start 03/05/17 at 15:00 ANGEL LUIS BOO MD Mar 05, 2017 14:50
[2017-03-05] MEDS ORDERED: BISACODYL (EC) 5 MG TAB PO SCH ×2 (15:00)
[2017-03-05] MEDS ORDERED: ALBUTEROL 0.083% (NEB) 2.5 MG/3 ML AMP HHN PRN (15:00)
[2017-03-05] MEDS ORDERED: BISACODYL 10 MG SUPP PR PRN (15:00)
--- NOTE | 2017-03-05 15:08 | RADRPT ---
PROCEDURE: US Abdomen (right upper quadrant). CLINICAL INDICATION: Elevated liver function tests. TECHNIQUE: Multiple real-time longitudinal and transverse images of the right upper quadrant of th e abdomen were acquired utilizing a curved array transducer. Images were reviewed on a high-resoluti on PACS workstation. COMPARISON: CT abdomen pelvis from earlier the same date. FINDINGS: The liver is normal in size with a slightly coarsened echotexture suggesting mild steatosis without focal mass or intrahepatic biliary dilatation. There is normal hepatopedal flow within the main por zahra vein. The gallbladder is well displayed without filling defects or wall thickening. The common bile duct measures 3.4 mm in maximal dimension. The visualized portions of the pancreas are unrema rkable with obscuration of the tail of the pancreas. No free fluid is identified. The right kidney measures 9.1 cm in length. There is normal echogenicity within the right kidney. There is no perinephric fluid collection. No hydronephrosis or calculus is seen. There is a 3.5 cm right renal cyst. IMPRESSION: 1. Mildly coarsened echotexture of the liver suggesting diffuse steatosis. 2. 3.5 cm right renal cyst. RPTAT: [facility] Physician Christopher Date Time Electronically viewed and signed by Physician Christopher on 03/05/2017 15:08 GISELLA/
[2017-03-05] MEDS: MAGNESIUM HYDROXIDE 30ML CUP GTB SCH ×2 (15:57→20:47)
[2017-03-05 19:35] LABS: CK-MB 3.53 ng/ml (0.0-2.4)
[2017-03-05 19:39] LABS: TROPONIN-I 0.125 ng/ml (0.00-0.12)
[2017-03-05] MEDS: ASPIRIN 81 MG TAB GTB SCH (20:47)
[2017-03-06] VITALS (37 sets, daily range): BP systolic 73–126; BP diastolic 44–115; PULSE 79–108; RESP 15–26
[2017-03-06] MEDS: PIPER-TAZO 2.25 GM (PMX) 50 ML IVPB SCH ×4 (00:05→15:26)
[2017-03-06 01:45] LABS: CK-MB 3.07 ng/ml (0.0-2.4); TROPONIN-I 0.143 ng/ml (0.00-0.12)
[2017-03-06] MEDS: SOD CHLORIDE 0.9% 1,000 ML IV SCH ×2 (04:37→14:43)
[2017-03-06] MEDS: PANTOPRAZOLE 40 MG INJ IV SCH (05:29)
[2017-03-06 06:24] LABS: ADD SCAN DIFF NO
[2017-03-06 06:40] LABS: BASOPHILS % 0.3 % (0.0-2.0); EOSINOPHILS # 0.1 10^3/ul (0.0-0.5); EOSINOPHILS % 0.9 % (0.0-7.0); HEMATOCRIT 24.7 % (42.0-52.0); HEMOGLOBIN 7.8 g/dl (14.0-18.0); LYMPHOCYTES % 14.3 % (15.0-51.0); MEAN CORPUSCULAR HEMOGLOBIN 28.8 pg (29.0-33.0); MEAN CORPUSCULAR HGB CONC 31.6 g/dl (32.0-37.0); MEAN CORPUSCULAR VOLUME 91.1 fl (82.0-101.0); MONOCYTE # 0.9 10^3/ul (0.3-0.9); MONOCYTES % 6.6 % (0.0-11.0); NEUTROPHIL # 10.7 10^3/ul (1.6-7.5); NEUTROPHILS % 77.3 % (39.0-77.0); PLATELET COUNT 425 10^3/UL (140-415); RED BLOOD COUNT 2.71 10^6/ul (4.70-6.10); RED CELL DISTRIBUTION WIDTH 15.5 % (11.5-14.5); WHITE BLOOD COUNT 13.8 10^3/ul (4.8-10.8)
[2017-03-06] MEDS ORDERED: VANCOMYCIN 750 MG in SOD CHLORIDE 0.9% 150 ML IVPB SCH ×2 (07:00→16:00)
[2017-03-06 07:02] LABS: ALBUMIN 2.5 g/dl (3.3-4.9); ALBUMIN/GLOBULIN RATIO 0.86; BILIRUBIN,INDIRECT 0.1 mg/dl (0-1.1); BILIRUBIN,TOTAL 0.1 mg/dl (0.2-1.3); CALCIUM 8.1 mg/dl (8.4-10.2); CREATININE 0.82 mg/dl (0.61-1.24); POTASSIUM 4.3 mmol/L (3.5-5.1); TOTAL PROTEIN 5.4 g/dl (6.1-8.1)
[2017-03-06 07:10] LABS: TROPONIN-I 0.113 ng/ml (0.00-0.12)
[2017-03-06 07:14] LABS: CK-MB 2.96 ng/ml (0.0-2.4)
[2017-03-06 07:29] LABS: THYROID STIMULATING HORMONE 2.79 MIU/L (0.465-4.680)
--- NOTE | 2017-03-06 07:44 | RADRPT ---
PROCEDURE: XR Chest. CLINICAL INDICATION: Shortness of breath. TECHNIQUE: Single frontal view. COMPARISON: 03/05/2017. FINDINGS: There is interstitial disease bilaterally in the mid and lower lung zones, unchanged. The lungs are otherwise clear. The heart size is normal. There is calcification in the aorta consistent with atherosclerosis. There is no pleural effusion or pneumothorax. Surgical clips are noted overlying the distal esophagus region. IMPRESSION: 1. Unchanged bilateral interstitial disease. 2. Atherosclerosis. 3. Surgical clips overlying the distal esophagus region. RPTAT: QQ .Kobe Keith MD, MD Date Time Electronically viewed and signed by .Kobe Keith MD, MD on 03/06/2017 07:44 .R/
[2017-03-06] MEDS: MAGNESIUM HYDROXIDE 30ML CUP GTB SCH (08:59)
[2017-03-06] MEDS: ASPIRIN 81 MG TAB GTB SCH (08:59)
--- NOTE | 2017-03-06 10:05 | PDOCDIS ---
Discharge Instructions CONDITION Patient Condition: Fair HOME CARE INSTRUCTIONS: Special Diet: g tube OTHER ORDERS: Other Orders: FARIBA, KADI on 03/08/2017 JUAN MANUEL MURRAY MD Mar 06, 2017 10:05
[2017-03-06] MEDS ORDERED: UDMOM GTB (10:06)
[2017-03-06] MEDS ORDERED: TYL650R PR (10:06)
[2017-03-06] MEDS ORDERED: BISA10SU75 PR (10:06)
[2017-03-06] MEDS ORDERED: ALBU2.5V3 HHN (10:06)
[2017-03-06] MEDS ORDERED: Vancomycin Iv Per Pharmacy XX (10:06)
[2017-03-06] MEDS ORDERED: ASPI81TA3 GTB (10:06)
--- NOTE | 2017-03-06 12:38 | CONS ---
Date/Time of Note Date/Time of Note DATE: 03/06/17 TIME: 12:38 Assessment/Plan Assessment/Plan Chief Complaint/Hosp Course No acute changes overnight patient is lethargic lying comfortably in bed, no fevers Temperature 98.8 pulse 95 respirations 20 blood pressure 108/90 saturation 100 on nasal cannula WBC 13.8 H&H 7.8 and 24.7 platelets 425 neutrophils 77.3 BN 27 creatinine 0.82 Microbiology: Blood cultures negative urine culture growing gram-negative rods Chest x-ray this morning revealed unchanged bilateral interstitial disease. CT of the abdomen and pelvis on admission revealed retained stool throughout the colon with large fecal impaction no CT evidence for appendicitis Antibiotics: Vanco, Zosyn Physical examination: Chronically ill-appearing well-developed elderly man who is lethargic in no distress. Head atraumatic normocephalic sclera nonicteric, bucal mucosa dry. Neck is supple. Chest rise symmetrical, breath sounds diminished basis. S1-S2. Abdomen soft, bowel tones present. Extremities without cyanosis, bilateral lower extremities contractured. Assessment: 1. Severe sepsis status post shock 2. Gram-negative oswaldo UTI 3. Severe constipation with fecal impaction 4. Dysphasia with a history PEG 5. Anemia 6. Dementia Plan: Hemodynamically stable, WBC tracing down, continue Zosyn, discontinue vancomycin, await for final cultures, continue stool softeners, laxatives, tap water enema with disimpaction as needed Discussed with staff Problems: Consultation Date/Type/Reason Admit Date/Time Mar 05, 2017 at 04:32 Initial Consult Date Type of Consultation: ID Exam/Review of Systems Vital Signs Vitals Vital Signs Date Time Temp Pulse Resp B/P Pulse Ox O2 Delivery O2 Flow Rate FiO2 03/06/17 08:00 97 03/06/17 06:30 19 108/90 100 03/06/17 06:15 Nasal Cannula 03/06/17 04:00 98.8 03/06/17 03:42 2.0 Intake and Output 03/05/17 03/05/17 03/06/17 15:00 23:00 07:00 Intake Total 890 ml 1103.125 ml 1510.314 ml Output Total 265 ml 460 ml 455 ml Balance 625 ml 643.125 ml 1055.314 ml Results Result Diagram: 03/06/17 0610 03/06/17 0610 Results 24 hrs Laboratory Tests Test 03/05/17 18:35 03/06/17 00:46 03/06/17 06:10 Lactic Acid Level 1.1 0.8 0.9 Creatine Kinase 246 H 219 H 186 Creatine Kinase Index 1.4 1.4 1.6 Creatinine Kinase MB (Mass) 3.53 H 3.07 H 2.96 H Troponin I 0.125 *H 0.143 *H 0.113 White Blood Count 13.8 #H Red Blood Count 2.71 #L Hemoglobin 7.8 #L Hematocrit 24.7 #L Mean Corpuscular Volume 91.1 Mean Corpuscular Hemoglobin 28.8 L Mean Corpuscular Hemoglobin Concent 31.6 L Red Cell Distribution Width 15.5 H Platelet Count 425 #H Mean Platelet Volume 10.0 Neutrophils % 77.3 H Lymphocytes % 14.3 L Monocytes % 6.6 Eosinophils % 0.9 Basophils % 0.3 Nucleated Red Blood Cells % 0.0 Neutrophils # 10.7 H Lymphocytes # 2.0 Monocytes # 0.9 Eosinophils # 0.1 Basophils # 0.0 Nucleated Red Blood Cells # 0.0 Sodium Level 142 Potassium Level 4.3 Chloride Level 107 Carbon Dioxide Level 23 Anion Gap 16 Blood Urea Nitrogen 27 #H Creatinine 0.82 Glucose Level 74 # Calcium Level 8.1 L Total Bilirubin 0.1 L Direct Bilirubin 0.00 Indirect Bilirubin 0.1 Aspartate Amino Transf (AST/SGOT) 41 # Alanine Aminotransferase (ALT/SGPT) 66 Alkaline Phosphatase 133 H Total Protein 5.4 #L Albumin 2.5 #L Globulin 2.90 Albumin/Globulin Ratio 0.86 Thyroid Stimulating Hormone (TSH) 2.790 Random Vancomycin Level 7.5 Medications Medications Current Medications Sodium Chloride (NS) 1,000 ml @ 125 mls/hr Q8H IV Last administered on 04:37; Admin Dose 125 MLS/HR; Start 03/05/17 at 04:36 Ondansetron HCl (Zofran Inj) 4 mg Q6H PRN IV NAUSEA AND/OR VOMITING; Start 03/05 at 05:00 Acetaminophen (Tylenol Supp) 650 mg Q4H PRN [place] PAIN LEVEL 1-3 OR FEVER Last administered on 03/05/17 06:54; Admin Dose 650 MG; Start 03/05/17 at 05:00 Pantoprazole 40 mg 40 mg DAILY@06 IV Last administered on 03/06/17 05:29; Admin Dose 40 MG; Start 03/05/17 at 06:00 Piperacillin Sod/ Tazobactam Sod 50 ml @ 100 mls/hr Q6 IVPB Last administered on 03/06/17 05:29; Admin Dose 100 MLS/HR; Start 03/05/17 at 06:00 Norepinephrine/ Dextrose (Levophed/D5W) 500 ml @ 1.87 mls/hr TITRATE IV ; Start 03/05/17 at 15:00 Bisacodyl (Dulcolax Supp) 10 mg DAILY PRN [place] CONSTIPATION; Start 03/05/17 at 15: 00 Magnesium Hydroxide (Milk Of Mag) 30 ml BID GTB Last administered on 03/06/17 08:59; Admin Dose 30 ML; Start 03/05/17 at 15:00; Stop 03/07/17 at 23:00 Aspirin (Aspirin) 81 mg DAILY GTB Last administered on 03/06/17 08:59; Admin Dose 81 MG; Start 03/05/17 at 20:30 TIFFANY JOYNER NP Mar 06, 2017 12:38
--- NOTE | 2017-03-06 13:38 | RADRPT ---
Echocardiogram Report Patient Name: CINDY VILLALPANDO Gender: Male Date: 1935 Study Date: 06-Mar-2017 Sod Cutter: Corine Starr RDCS Location: [facility] Ref. Physician: BRIGHT GAGE Quality: Adequate Procedures: Transthoracic echocardiogram with complete 2D, M-Mode, and doppler examination. Indications: r/o Congestive Heart Failure. 2D/M Mode Doppler Measurement Value Normal Ranges Measurement Value Normal Ranges LVIDd 2D 4.5 3.5 - 5.6 cm AV Peak Larry 1.2 m/sec LVIDs 2D 3.3 2.1 - 4.1 cm AV Peak PG 6.0 mmHg FS 2D 25.2 % AI Peak PG 50.0 mmHg LVPWd 2D 1.1 0.6 - 1.1 cm AI Peak Larry 3.5 m/sec IVSd 2D 1.0 0.6 - 1.1 cm AI PHT 393.0 msec IVS/LVPW 2D 0.9 LVOT Peak Larry 0.9 m/sec AoR Diam 2D 3.6 2.0 - 3.7 cm LVOT Peak PG 3.0 mmHg LA/Ao 2D 1 0 - 1 MV E Peak Larry 0.7 m/sec EDV 2D 89.9 cm3 MV A Peak Larry 0.9 m/sec ESV 2D 37.6 cm3 MV E/A 0.8 LA Dimen 2D 3.6 2.3 - 4.0 cm MV Decel Time 134 msec MV E/A 0.8 MR Peak PG 60.0 mmHg MR Peak Larry 3.9 m/sec TR Peak Larry 2.5 m/sec TR Peak PG 24.0 mmHg RVSP 27.0 mmHg Findings Left Ventricle: Normal left ventricular systolic function. Normal left ventricular cavity size. Normal left ventricular wall thickness. Ejection fraction is visually estimated at 55 %. Tissue Doppler/Mitral Doppler indices are consistent with impaired relaxation (Stage I diastolic dysfunction). Right Ventricle: Normal right ventricular size. Normal right ventricular systolic function. Left Atrium: The left atrium is normal in size. Right Atrium: The right atrium is normal in size. Mitral Valve: Mitral valve leaflets appear mildly thickened. Mild mitral annular calcification. Mild mitral valve regurgitation. Aortic Valve: No hemodynamically significant aortic stenosis by doppler. Aortic cusps appear mildly calcified. Mild aortic valve regurgitation. Tricuspid Valve: Normal appearance of the tricuspid valve. Estimated peak PA systolic pressure 27 mmHg. There is mild tricuspid regurgitation. Pulmonic Valve: Normal pulmonic valve appearance. Pericardium: Normal pericardium with no significant pericardial effusion. Aorta: Normal aortic root. IVC: Normal size and normal respiratory collapse consistent with normal right atrial pressure. Conclusions 1.Normal left ventricular systolic function. Normal left ventricular cavity size. Normal left ventricular wall thickness. Ejection fraction is visually estimated at 55 %. Tissue Doppler/Mitral Doppler indices are consistent with impaired relaxation (Stage I diastolic dysfunction). 2.Normal right ventricular size. Normal right ventricular systolic function. 3.The left atrium is normal in size. 4.The right atrium is normal in size. 5.Mild mitral valve regurgitation. 6.No hemodynamically significant aortic stenosis by doppler. Mild aortic valve regurgitation. 7.Estimated peak PA systolic pressure 27 mmHg. There is mild tricuspid regurgitation. 8.Normal pericardium with no significant pericardial effusion. Electronically Signed By: Bowen Ramirez 06-Mar-2017 13:38:03 -0700 Patient Name: CINDY VILLALPANDO Study Date: 06-Mar-2017 [id number]
--- NOTE | 2017-03-06 16:38 | CONS ---
Date/Time of Note Date/Time of Note DATE: 03/06/17 TIME: 16:36 Assessment/Plan Assessment/Plan Additional Assessment/Plan Sepsis Sinus tachycardia, improving Preserved ejection fraction Mildly elevated troponin Encephalopathy Debilitated from nursing facility -Blood pressure trend overall improved. Antibiotics as per infectious disease. Troponins minimally elevated likely secondary to sepsis. Continue aspirin if no contraindication. Consultation Date/Type/Reason Admit Date/Time Mar 05, 2017 at 04:32 Initial Consult Date Type of Consultation: cv 24 HR Interval Summary Free Text/Dictation Patient seen and examined Exam/Review of Systems Vital Signs Vitals Vital Signs Date Time Temp Pulse Resp B/P Pulse Ox O2 Delivery O2 Flow Rate FiO2 03/06/17 14:00 108 15 109/90 96 Nasal Cannula 2.0 03/06/17 12:00 98.9 Intake and Output 03/05/17 03/05/17 03/06/17 15:00 23:00 07:00 Intake Total 890 ml 1103.125 ml 1510.314 ml Output Total 265 ml 460 ml 455 ml Balance 625 ml 643.125 ml 1055.314 ml Exam No apparent distress Constitutional: frail Head: normocephalic Respiratory: other (Coarse breath sounds bilaterally, no wheezing) Cardiovascular: other (S1-S2 heard), regular rate and rhythm Gastrointestinal: bowel sounds, non-tender, soft Extremities: other (No edema) Results Result Diagram: 03/06/17 0610 03/06/17 0610 Results 24 hrs Laboratory Tests Test 03/05/17 18:35 03/06/17 00:46 03/06/17 06:10 Lactic Acid Level 1.1 0.8 0.9 Creatine Kinase 246 H 219 H 186 Creatine Kinase Index 1.4 1.4 1.6 Creatinine Kinase MB (Mass) 3.53 H 3.07 H 2.96 H Troponin I 0.125 *H 0.143 *H 0.113 White Blood Count 13.8 #H Red Blood Count 2.71 #L Hemoglobin 7.8 #L Hematocrit 24.7 #L Mean Corpuscular Volume 91.1 Mean Corpuscular Hemoglobin 28.8 L Mean Corpuscular Hemoglobin Concent 31.6 L Red Cell Distribution Width 15.5 H Platelet Count 425 #H Mean Platelet Volume 10.0 Neutrophils % 77.3 H Lymphocytes % 14.3 L Monocytes % 6.6 Eosinophils % 0.9 Basophils % 0.3 Nucleated Red Blood Cells % 0.0 Neutrophils # 10.7 H Lymphocytes # 2.0 Monocytes # 0.9 Eosinophils # 0.1 Basophils # 0.0 Nucleated Red Blood Cells # 0.0 Sodium Level 142 Potassium Level 4.3 Chloride Level 107 Carbon Dioxide Level 23 Anion Gap 16 Blood Urea Nitrogen 27 #H Creatinine 0.82 Glucose Level 74 # Calcium Level 8.1 L Total Bilirubin 0.1 L Direct Bilirubin 0.00 Indirect Bilirubin 0.1 Aspartate Amino Transf (AST/SGOT) 41 # Alanine Aminotransferase (ALT/SGPT) 66 Alkaline Phosphatase 133 H Total Protein 5.4 #L Albumin 2.5 #L Globulin 2.90 Albumin/Globulin Ratio 0.86 Thyroid Stimulating Hormone (TSH) 2.790 Random Vancomycin Level 7.5 Medications Medications Current Medications Sodium Chloride (NS) 1,000 ml @ 125 mls/hr Q8H IV Last administered on 04:37; Admin Dose 125 MLS/HR; Start 03/05/17 at 04:36 Ondansetron HCl (Zofran Inj) 4 mg Q6H PRN IV NAUSEA AND/OR VOMITING; Start 03/05 at 05:00 Acetaminophen (Tylenol Supp) 650 mg Q4H PRN [place] PAIN LEVEL 1-3 OR FEVER Last administered on 03/05/17 06:54; Admin Dose 650 MG; Start 03/05/17 at 05:00 Pantoprazole 40 mg 40 mg DAILY@06 IV Last administered on 03/06/17 05:29; Admin Dose 40 MG; Start 03/05/17 at 06:00 Piperacillin Sod/ Tazobactam Sod 50 ml @ 100 mls/hr Q6 IVPB Last administered on 03/06/17 15:26; Admin Dose 100 MLS/HR; Start 03/05/17 at 06:00 Norepinephrine/ Dextrose (Levophed/D5W) 500 ml @ 1.87 mls/hr TITRATE IV ; Start 03/05/17 at 15:00 Bisacodyl (Dulcolax Supp) 10 mg DAILY PRN [place] CONSTIPATION; Start 03/05/17 at 15: 00 Magnesium Hydroxide (Milk Of Mag) 30 ml BID GTB Last administered on 03/06/17 08:59; Admin Dose 30 ML; Start 03/05/17 at 15:00; Stop 03/07/17 at 23:00 Aspirin 81 mg 81 mg DAILY GTB Last administered on 03/06/17 08:59; Admin Dose 81 MG; Start 03/05/17 at 20:30 Vancomycin HCl/ Sodium Chloride (Vancocin/NS) 150 ml @ 75 mls/hr Q24H IVPB Last administered on 03/06/17 15:27; Admin Dose 75 MLS/HR; Start 03/06/17 at 16 :00 Bowen Ramirez DO Mar 06, 2017 16:38
== END 2017-03-06 17:00 | DRG 872 ==
LOC: E/R 01:59 → ICU 04:32
PROVIDERS: ADMIT Family Medicine; ATTEND Family Medicine
DX: A41.9 Sepsis, unspecified organism (principal); J44.9 Chronic obstructive pulmonary disease, unspecified; N39.0 Urinary tract infection, site not specified; E86.0 Dehydration; R13.10 Dysphagia, unspecified; Z93.1 Gastrostomy status; K56.41 Fecal impaction; R65.20 Severe sepsis without septic shock; D64.9 Anemia, unspecified; N30.90 Cystitis, unspecified without hematuria
CPT/HCPCS: 36415; 36430; 71010; 74176; 76705; 80053; 80202; 81001; 82550; 82553; 83605; 84443; 84484; 85025; 85610; 85730; 86850; 86900; 86901; 86920; 87040; 87081; 87086; 93005; 93306; 96374; 96375; 97161; C9113; J2405; J2543; J3370; J7030; J7040; P9016

== ENCOUNTER 2017-04-01 02:18 | Inpatient (IN) | payer MEDICARE ==
[~2017-04-01] VITALS: Ht 162.6 cm; Wt 58.0 kg
[2017-04-01] VITALS (8 sets, daily range): BP systolic 96–130; BP diastolic 54–72; PULSE 96–110; RESP 18–21; TEMP 97.3; Ht 162.6 cm; Wt 58.0 kg
[~2017-04-01 02:18] MED LIST: ALBU2.5V3 HHN; ASPI81TA3 GTB; BISA10SU75 PR; TYL650R PR; UDMOM GTB; Vancomycin Iv Per Pharmacy XX
--- NOTE | 2017-04-01 02:58 | ERA ---
ER Documentation Chief Complaint Date/Time DATE: 04/01/17 TIME: 02:57 Chief Complaint BIBA from [facility], oral suctioned bloody mucuous HPI The patient is a 81-year-old male, presenting to the ER because of bloody secretion when the nurse was suctioning him. He is unable to provide a history , the history is obtained from the consumer attorney and medical record Past Medical history: Dementia, anemia, dyslipidemia, dysphagia Past surgical history: G-tube ROS All systems reviewed and are negative except as per history of present illness. Medications Home Meds Active Scripts Bisacodyl* (Bisacodyl*) 10 Mg Supp, 10 MG [place] DAILY Y for CONSTIPATION for 1 Day , SUPP Prov:JUAN MANUEL MURRAY MD 03/06/17 Aspirin (Aspirin) 81 Mg Chew, 81 MG GTB DAILY for 1 Day, TAB Prov:JUAN MANUEL MURRAY MD 03/06/17 Albuterol Sulfate* (Albuterol Sulfate* Neb) 0.083%-3 Ml Neb, 2.5 MG HHN Q2H RESP THERAPY Y for SHORTNESS OF BREATH for 1 Day Prov:JUAN MANUEL MURRAY MD 03/06/17 Reported Medications Metoprolol Tartrate* (Lopressor*) 50 Mg Tab, 50 MG PO BID, #60 TAB 04/01/17 Levetiracetam* (Keppra*) 500 Mg/5 Ml Solution, 500 MG PO BID, BOTTLE 04/01/17 Levalbuterol Hcl* (Levalbuterol Hcl*) 1.25 Mg/3 Ml Vial.neb, INHALATION Q6H Y for WHEEZING AND SOB, VIAL 04/01/17 Acetaminophen* (Acetaminophen* Susp) 325 Mg/10.15 Ml Solution, 325 MG PO Q4H Y for PAIN OR TEMP ABOVE 38C, ML 04/01/17 Docusate Sodium* (Colace* Liq) 50 Mg/5 Ml Liquid, 100 MG GTB BID, EA 04/01/17 Ascorbic Acid* (Ascorbic Acid*) Unknown Strength Syrup, 0 PO DAILY, #75 ML 04/01/17 Zinc Sulfate* (Zinc Sulfate*) 220 Mg Cap, 220 MG PO DAILY, CAP 04/01/17 Discontinued Scripts Magnesium Hydroxide* ([place]' MOM*) 30 Ml Susp, 30 ML GTB BID for 1 Day Prov:JUAN MANUEL MURRAY MD 03/06/17 Acetaminophen* (Acephen*) 650 Mg Supp, 650 MG KY Q4H Y for PAIN LEVEL 1-3 OR FEVER for 1 Day, SUPP Prov:JUAN MANUEL MURRAY MD 03/06/17 [Vancomycin Iv Per Pharmacy] 1 EA EACH No Conflict Check, 0 EA XX .PER PROTOCOL for 1 Day Prov:JUAN MANUEL MURRAY MD 03/06/17 Allergies Allergies: Coded Allergies: No Known Allergy (Unverified , 04/01/17) PMhx/Soc History of Surgery: Yes Hx Neurological Disorder: Yes (DEMENTIA) Hx Respiratory Disorders: Yes (COPD, ASPIRATION PNEUMONIA) Hx Cardiac Disorders: No Hx Miscellaneous Medical Probl: Yes (Repiratory distress, tachycardia, lactic acidosis, dementia, COPD) Physical Exam Vitals Vital Signs Date Time Temp Pulse Resp B/P Pulse Ox O2 Delivery O2 Flow Rate FiO2 04/01/17 03:36 Nasal Cannula 2 04/01/17 03:19 123 22 97 Nasal Cannula 2.0 04/01/17 03:19 97 2.0 04/01/17 02:23 99.4 60 18 73/51 96 Physical Exam Const: No acute distress. Dehydrated Head: Atraumatic. Eyes: Normal Conjunctiva. ENT: Normal External Ears, Nose and Mouth. Neck: Full range of motion. No meningismus. Resp: scattered rhonchi and minimal wheezes Cardio: Regular tachycardic Abd: Soft, non distended, normal bowel sounds, non tender. Skin: No petechiae or rashes. Back: No midline or flank tenderness. Ext: No cyanosis, or edema. Neur: Unable to perform due to his condition Psych: Unable to perform due to his condition Result Diagram: 04/01/17 0326 04/01/17 0326 Results 24 hrs Laboratory Tests Test 04/01/17 03:26 04/01/17 03:50 04/01/17 04:00 04/01/17 04:15 White Blood Count 20.210^3/ul Red Blood Count 4.2810^6/ul Hemoglobin 12.3g/dl Hematocrit 38.4% Mean Corpuscular Volume 89.7fl Mean Corpuscular Hemoglobin 28.7pg Mean Corpuscular Hemoglobin Concent 32.0g/dl Red Cell Distribution Width 16.8% Platelet Count 86262^3/UL Mean Platelet Volume 10.8fl Neutrophils % 81.5% Lymphocytes % 13.5% Monocytes % 4.3% Eosinophils % 0.0% Basophils % 0.2% Nucleated Red Blood Cells % 0.0/100WBC Neutrophils # 16.510^3/ul Lymphocytes # 2.710^3/ul Monocytes # 0.910^3/ul Eosinophils # 0.010^3/ul Basophils # 0.010^3/ul Nucleated Red Blood Cells # 0.010^3/ul Prothrombin Time 15.0Sec Prothrombin Time Ratio 1.2 INR International Normalized Ratio 1.17 Activated Partial Thromboplast Time 36.5Sec Sodium Level 147mmol/L Potassium Level 5.9mmol/L Chloride Level 104mmol/L Carbon Dioxide Level 23mmol/L Anion Gap 26 Blood Urea Nitrogen 87mg/dl Creatinine 1.92mg/dl Glucose Level 161mg/dl Lactic Acid Level 4.4mmol/L Calcium Level 9.3mg/dl Total Bilirubin 0.2mg/dl Direct Bilirubin 0.00mg/dl Indirect Bilirubin 0.2mg/dl Aspartate Amino Transf (AST/SGOT) 67IU/L Alanine Aminotransferase (ALT/SGPT) 49IU/L Alkaline Phosphatase 130IU/L Troponin I 0.086ng/ml Total Protein 8.4g/dl Albumin 3.8g/dl Globulin 4.60g/dl Albumin/Globulin Ratio 0.82 Lipase 193U/L Blood Gas Specimen Source Blood arterial Arterial Blood Date Drawn 04/01/2017 4:18:40 AM Arterial Blood pH (Temp corrected) 7.447 Arterial Blood pCO2 (Temp correct) 23.6mmhg Arterial Blood pO2 (Temp corrected) 78.2mmHG Arterial Blood HCO3 15.9mmol/L Arterial Blood Base Excess -6.5mmol/L Arterial Blood Oxygen Saturation 94.9mmHG Carl Test N/A Arterial Blood Gas Puncture Site Right Brachial Arterial Blood Carboxyhemoglobin 0.3% Arterial Blood Methemoglobin 0.3% Blood Gas A-a O2 Differential 108.0mmHg Oxyhemoglobin Percent 94.3% Total Hemoglobin 11.2g/dl Blood Gas Temperature 37.0C Blood Gas Modality NASAL CANNULA FiO2 30.0% Blood Gas Notified Whom MG Blood Gas Notified Time 04/01/2017 4:23:00 AM Urine Color CYNTHIA Urine Clarity CLOUDY Urine pH 5.0 Urine Specific [place] 1.024 Urine Ketones NEGATIVEmg/dL Urine Nitrite NEGATIVEmg/dL Urine Bilirubin NEGATIVEmg/dL Urine Urobilinogen NEGATIVEmg/dL Urine Leukocyte Esterase NEGATIVELeu/ul Urine Microscopic RBC 1/HPF Urine Microscopic WBC 3/HPF Urine Amorphous Crystals MODERATE/HPF Urine Hemoglobin NEGATIVEmg/dL Urine Glucose NEGATIVEmg/dL Urine Total Protein 1+mg/dl Bedside Urine pH (LAB) 5.0 Bedside Urine Protein (LAB) 2+ Bedside Urine Glucose (UA) Negative Bedside Urine Ketones (LAB) Negative Bedside Urine Blood Negative Bedside Urine Nitrite (LAB) Negative Bedside Urine Leukocyte Esterase (L Negative Current Medications Medications (Trade) Dose Ordered Sig/Killian Route PRN Reason Start Time Stop Time Status Last Admin Dose Admin Sodium Chloride (NS) 1,710 ml BOLUS OVER 2 HOURS STAT IV* 04/01/17 03:03 04/01/17 03:04 Cancel Levalbuterol (Xopenex Neb) 1.25 mg ONCE ONCE HHN 04/01/17 03:30 04/01/17 03:31 DC 04/01/17 03:19 Ipratropium [place] 0.5 mg 0.5 mg ONCE ONCE HHN 04/01/17 03:30 04/01/17 03:31 DC 04/01/17 03:19 Sodium Chloride 1,710 ml @ 1,710 mls/hr BOLUS X1 ONCE IV 04/01/17 04:00 04/01/17 04:59 DC 04/01/17 04:37 Vancomycin HCl 250 ml @ 125 mls/hr ONCE IVPB 04/01/17 05:00 04/01/17 06:59 Meropenem/Sodium Chloride (Merrem 500mg/50 ml(Pmx)) 50 ml @ 100 mls/hr NOW STAT IVPB 04/01/17 04:45 04/01/17 05:14 DC 04/01/17 05:21 Dextrose (D50w Syringe) 50 ml ONCE ONCE IV 04/01/17 05:00 04/01/17 05:03 DC Insulin Human Regular (Humulin R) 10 unit ONCE ONCE IV 04/01/17 05:00 04/01/17 05:04 DC Lidocaine (Xylocaine 1% (Mpf)) 5 ml ONCE ONCE SC 04/01/17 05:00 04/01/17 05:03 DC Miscellaneous Information 1 ea NOTE XX 04/01/17 05:00 Glucose (Glutose) 15 gm Q15M PRN PO DECREASED GLUCOSE 04/01/17 05:00 Glucose (Glutose) 22.5 gm Q15M PRN PO DECREASED GLUCOSE 04/01/17 05:00 Dextrose (D50w Syringe) 25 ml Q15M PRN IV DECREASED GLUCOSE 04/01/17 05:00 Dextrose (D50w Syringe) 50 ml Q15M PRN IV DECREASED GLUCOSE 04/01/17 05:00 Glucagon (Glucagen) 1 mg Q15M PRN IM DECREASED GLUCOSE 04/01/17 05:00 Glucose (Glutose) 15 gm Q15M PRN BUCCAL DECREASED GLUCOSE 04/01/17 05:00 Procedures/[place] [id number] Radiology Main Line: [phone] DIAGNOSTIC IMAGING REPORT Patient: CINDY VILLALPANDO : 1935 Age: 81 Sex: M MR #: [id number] DOS: 04/01/17 0303 Ordering MD: DANISH VALDEZ MD Location: E/R Room/Bed: PROCEDURE: XR Chest. CLINICAL INDICATION: Possible sepsis TECHNIQUE: Single frontal view of the chest was obtained COMPARISON: Chest x-ray of 03/06/[address] abdomen of 03/05/2017 FINDINGS: The heart is not enlarged. Calcification in thoracic aorta Emphysema. Increased density in left lower lobe again seen consistent with infiltrate / pneumonia. Minimal patchy density at right lung base again seen. There is minimal prominence of the lung interstitium likely minimal chronic changes. Surgical clips again seen in the gastroesophageal junction region. There is no definite pleural effusion or pneumothorax. ECG leads projected over the chest. IMPRESSION: Emphysema. Increased density in left lower lobe again seen consistent with infiltrate / pneumonia not significantly changed compared to previous chest x- ray. Minimal patchy density at right lung base again seen could be secondary to minimal atelectasis. Please see above. RPTAT: HJES .John Bryan MD, MD Date Time Electronically viewed and signed by .John Bryan MD, MD on 04/01/2017 04:38 .S/ CC: DANISH VALDEZ MD EKG: Read by emergency physician Rate/Rhythm: Sinus tachycardia 135 beats/min QRS, ST, T-waves: No ST elevation, no T inversion, low voltage QRS, incomplete right bundle branch block, left anterior fascicular block Impression: Abnormal EKG MEDICAL MAKING DECISION: The patient is a 81-year-old male, presenting with acute septic shock, acute kidney injury, acute hyperkalemia, acute pneumonia. He was treated with Xopenex 1.25 mg, Atrovent 0.5 mg, normal saline 30 mL/kg IV , vancomycin IV, meropenem IV for acute septic shock due to pneumonia. He was treated with D50 IV, 10 units of Regular Insulin IV for acute hyperkalemia. He was treated with Mercer Admit MDM: Patient's infectious symptoms have not stabilized and the patient is at risk of rapid decompensation. The patient will be admitted for careful hydration, antibiotic therapy, and infectious source control. Severe Sepsis criteria: Infectious source: Pneumonia End organ damage indicated by: Lactate > 2.0 mmol/L Hypotension (SBP < 90 or >40 mmHG drop or MAP < 65) Acute Resp Failure (sat < 92% w/o oxygen) Sepsis Management: Time of recognition of severe sepsis/septic shock:4:50 AM Within 3 hours of recognition: Blood cultures x 2 before broad-spectrum antibiotics: Yes 30 ml/kg NS bolus completed Initial lactate 4.4 Repeat lactate pending Critical Care: Critical care time 35 minutes excluding billable procedure Emergent fluid management while maintaining close respiratory support. Provision of immediate and broad-spectrum antibiotic therapy. Simultaneous assessment for possible sources in order to direct targeted therapy. Consideration for invasive and chemical support to prevent cardiopulmonary collapse. Septic Shock Assessment: Any lactic acid > 4.0 yes Persistent hypotension (SBP < 90 or 40 mmHg drop, MAP < 65) despite 30 mL/kg IV fluid bolusno Volume Re-assessment for Septic Shock (post 30 ml/kg bolus): Temp99.4, BP114/61, HR114, RR,20 Pox95 on 3L Heart tachy & rhythm Lungs no crackles Skin Warm & dry & pink Cap Refill less than 2 seconds Peripheral pulses radially present Persistent Hypotension Treatment: Comfort care no Central line NA. PICC line ordered Vasopressor started NA I considered further perfusion assessment with CVP measurement, SCVO2, bedside ultrasound volume assessment, passive leg raise, trial of further fluid bolus. And proceeded withIVF DANISH VALDEZ MD Apr 01, 2017 02:58
[2017-04-01] MEDS ORDERED: SODIUM CHLORIDE 0.9% 1L BAG IV* STA (03:03)
[2017-04-01] MEDS ORDERED: LEVALBUTEROL (NEB) 1.25 MG/0.5 ML AMP HHN ONE (03:30)
[2017-04-01] MEDS ORDERED: IPRATROPIUM (NEB) 0.5 MG/2.5 ML AMP HHN ONE (03:30)
[2017-04-01] MEDS ORDERED: SOD CHLORIDE 0.9% 1,710 ML IV ONE (04:00)
[2017-04-01 04:10] LABS: URINE BLOOD (Dip) POC Negative (NEGATIVE)
[2017-04-01 04:13] LABS: BASOPHILS % 0.2 % (0.0-2.0); HEMATOCRIT 38.4 % (42.0-52.0); HEMOGLOBIN 12.3 g/dl (14.0-18.0); LYMPHOCYTES # 2.7 10^3/ul (0.8-2.9); LYMPHOCYTES % 13.5 % (15.0-51.0); MEAN CORPUSCULAR HEMOGLOBIN 28.7 pg (29.0-33.0); MEAN CORPUSCULAR VOLUME 89.7 fl (82.0-101.0); MEAN PLATELET VOLUME 10.8 fl (7.4-10.4); MONOCYTE # 0.9 10^3/ul (0.3-0.9); MONOCYTES % 4.3 % (0.0-11.0); NEUTROPHIL # 16.5 10^3/ul (1.6-7.5); NEUTROPHILS % 81.5 % (39.0-77.0); PLATELET COUNT 500 10^3/UL (140-415); POSITIVE DIFF @See below; RED BLOOD COUNT 4.28 10^6/ul (4.70-6.10); RED CELL DISTRIBUTION WIDTH 16.8 % (11.5-14.5); WHITE BLOOD COUNT 20.2 10^3/ul (4.8-10.8)
[2017-04-01] MEDS ORDERED: ASCO500S2 PO (04:19)
[2017-04-01] MEDS ORDERED: ZINC220C5 PO (04:19)
[2017-04-01 04:23] LABS: Arterial Base Excess -6.5 mmol/L (-3.0-3); Arterial COHb 0.3 % (0.0-3.0); Arterial Fraction of Oxyhgb 94.3 % (93.0-99.0); Arterial HCO3 15.9 mmol/L (22.0-26.0); Arterial MetHb 0.3 % (0.0-1.5); Arterial Total Hemglobin 11.2 g/dl (12.0-18.0); MODE NASAL CANNULA
[2017-04-01] MEDS ORDERED: ACET325S PO (04:26)
[2017-04-01] MEDS ORDERED: LEVE500S8 PO (04:26)
[2017-04-01] MEDS ORDERED: LEVA1.257 INHALATION (04:26)
[2017-04-01] MEDS ORDERED: UDCOL GTB (04:26)
[2017-04-01] MEDS ORDERED: METO-429 PO (04:26)
[2017-04-01 04:28] LABS: INR 1.17; PT RATIO 1.2
[2017-04-01 04:29] LABS: PARTIAL THROMBOPLASTIN TIME 36.5 Sec (25.0-35.0)
[2017-04-01 04:32] LABS: ALBUMIN 3.8 g/dl (3.3-4.9); ALBUMIN/GLOBULIN RATIO 0.82; BILIRUBIN,INDIRECT 0.2 mg/dl (0-1.1); BILIRUBIN,TOTAL 0.2 mg/dl (0.2-1.3); CALCIUM 9.3 mg/dl (8.4-10.2); CREATININE 1.92 mg/dl (0.61-1.24); POTASSIUM 5.9 mmol/L (3.5-5.1); TOTAL PROTEIN 8.4 g/dl (6.1-8.1)
--- NOTE | 2017-04-01 04:38 | RADRPT ---
PROCEDURE: XR Chest. CLINICAL INDICATION: Possible sepsis TECHNIQUE: Single frontal view of the chest was obtained COMPARISON: Chest x-ray of 03/06/[address] abdomen of 03/05/2017 FINDINGS: The heart is not enlarged. Calcification in thoracic aorta Emphysema. Increased density in left lower lobe again seen consistent with infiltrate / pneumonia. Minimal patchy density at right lung base again seen. There is minimal prominence of the lung inter stitium likely minimal chronic changes. Surgical clips again seen in the gastroesophageal junction r egion. There is no definite pleural effusion or pneumothorax. ECG leads projected over the chest. IMPRESSION: Emphysema. Increased density in left lower lobe again seen consistent with infiltrate / pneumonia no t significantly changed compared to previous chest x-ray. Minimal patchy density at right lung base again seen could be secondary to minimal atelectasis. Please see above. RPTAT: HJES .John Bryan MD, MD Date Time Electronically viewed and signed by .John Bryan MD, MD on 04/01/2017 04:38 .S/
[2017-04-01 04:43] LABS: TROPONIN-I 0.086 ng/ml (0.00-0.12)
[2017-04-01] MEDS ORDERED: MEROPENEM 500MG/50 ML (PMX) 50 ML IVPB STA (04:45)
[2017-04-01] MEDS ORDERED: GLUCAGON 1 MG INJ IM PRN (05:00)
[2017-04-01] MEDS ORDERED: DEXTROSE 50% 50 ML SYRINGE IV PRN ×2 (05:00)
[2017-04-01] MEDS ORDERED: VANCOMYCIN 1 GM (PMX) 250 ML IVPB SCH (05:00)
[2017-04-01] MEDS ORDERED: GLUCOSE GEL 15 GRAM TUBE BUCCAL PRN (05:00)
[2017-04-01] MEDS ORDERED: INSULIN REGULAR, HUMAN 100 UNIT/1 ML 3ML VIAL IV ONE (05:00)
[2017-04-01] MEDS ORDERED: GLUCOSE GEL 15 GRAM TUBE PO PRN ×2 (05:00)
[2017-04-01] MEDS ORDERED: DEXTROSE 50% 50 ML SYRINGE IV ONE (05:00)
[2017-04-01] MEDS ORDERED: LIDOCAINE 1% (MPF) 5 ML VIAL SC ONE (05:00)
[2017-04-01 05:09] LABS: ADD UMIC YES; UR AMORPHOUS CRYSTAL MODERATE /HPF (NONE SEEN); UR ASCORBIC ACID 40 mg/dL (NEGATIVE); UR BILIRUBIN (Dip) NEGATIVE (NEGATIVE); UR BLOOD (Dip) NEGATIVE (NEGATIVE); UR CLARITY CLOUDY (CLEAR); UR COLOR AMBER (YELLOW); UR GLUCOSE (Dip) NEGATIVE (NEGATIVE); UR KETONES (Dip) NEGATIVE (NEGATIVE); UR LEUKOCYTE ESTERASE (Dip) NEGATIVE Leu/ul (NEGATIVE); UR NITRITE (Dip) NEGATIVE (NEGATIVE); UR RBC 1 /HPF (0-5); UR SPECIFIC GRAVITY (Dip) 1.024 (1.003-1.030); UR TOTAL PROTEIN (Dip) 1+ mg/dl (NEGATIVE); UR UROBILINOGEN (Dip) NEGATIVE (NEGATIVE)
[2017-04-01] MEDS ORDERED: NORepinephrine 8MG/250 ML (PMX 250 ML IV SCH (05:45)
[2017-04-01] MEDS ORDERED: ONDANSETRON 4 MG INJ IV PRN (06:00)
[2017-04-01] MEDS ORDERED: morphine 4 MG/ML VIAL IV PRN (06:00)
[2017-04-01] MEDS ORDERED: ACETAMINOPHEN 650MG/20.3ML CUP PO PRN (06:00)
[2017-04-01] MEDS ORDERED: LORAZEPAM 2 MG INJ IV PRN (06:00)
[2017-04-01] MEDS ORDERED: VANCOMYCIN IV PER PHARMACY XX SCH (06:00)
[2017-04-01] MEDS ORDERED: IPRATROPIUM (HFA) 12.9 GM INHALER INH PRN (06:00)
[2017-04-01] MEDS ORDERED: ALBUTEROL 18 GM INHALER INH PRN (06:00)
--- NOTE | 2017-04-01 06:22 | HP ---
Date/Time of Note Date/Time of Note DATE: 04/01/17 TIME: 06:09 Assessment/Plan Lines/Catheters Urinary Cath still in place: Yes Assessment/Plan Assessment/Plan 1. Septic shock secondary to pneumonia: -Broad-spectrum antibiotics -IV fluids -Pressors as needed -We will follow-up respiratory culture, urine culture and blood culture -ID and pulmonary consult 2. Acute kidney injury -Creatinine jumped from 0.8 to1.9 in less than a month -Will continue IV fluid and as needed pressor support to bring blood pressure to acceptable range -Nephrology consult will be placed. Will leave the decision about obtaining a renal ultrasound to nephrology 3. Hyperkalemia: 2/2 acute renal insufficiency -We will give Kayexalate. See #2 4. Dementia: Patient was probable history of CVA -This is chronic. Continue supportive care 5. Normocytic anemia: Likely secondary to anemia of chronic disease -Monitor H&H closely and transfuse as needed 6. Dysphagia: Patient has a PEG tube for feeding -Continue tube feeding 7. Mild hypernatremia: Correct electrolytes as needed HPI/ROS Admit Date/Time Admit Date/Time Hx of Present Illness This is an 81-year-old male with a possible history of CVA, dysphagia status post PEG tube for feeding, dementia, anemia and pneumonia who was sent from the longterm facility after it was noted that he had bloody mucus when suctioned. Patient is not able to provide history and as such information is gathered from chart review and from the ER physician and notes. Patient was reset actually admitted here to [facility] for pneumonia and he was discharged about 3 weeks ago. When he presented to the ER today, he was hypotensive with a blood pressure of 73/51. Chest x-ray showed emphysema, increased density in the left lower lobe is again seen consistent with infiltrate/pneumonia, but not significantly changed from the chest x-ray about a month ago. Also noted on the chest x-ray was minimal patchy density in the right lung base. Labs show a WBC of 20,000, potassium 5.9, BUN 87, creatinine 1.92, which is an increase from 0.8 during last admission. Sodium was 147, lactic acid 4.4, hemoglobin 12.3 and platelet count 500. . PMH/Family/Social Social History Smoking Status: Unknown if ever smoked Exam/Review of Systems Vital Signs Vitals Vital Signs Date Time Temp Pulse Resp B/P Pulse Ox O2 Delivery O2 Flow Rate FiO2 04/01/17 03:36 Nasal Cannula 2 04/01/17 03:19 123 22 97 04/01/17 02:23 99.4 73/51 Labs Result Diagram: 04/01/17 0326 04/01/17 0326 Medications Medications Current Medications Vancomycin HCl (Vancocin) 250 ml @ 125 mls/hr ONCE IVPB ; Start 04/01/17 at 05: 00; Stop 04/01/17 at 06:59 Miscellaneous Information 1 ea NOTE XX ; Start 04/01/17 at 05:00 Glucose (Glutose) 15 gm Q15M PRN PO DECREASED GLUCOSE; Start 04/01/17 at 05:00 Glucose (Glutose) 22.5 gm Q15M PRN PO DECREASED GLUCOSE; Start 04/01/17 at 05:00 Dextrose (D50w Syringe) 25 ml Q15M PRN IV DECREASED GLUCOSE; Start 04/01/17 at 05:00 Dextrose (D50w Syringe) 50 ml Q15M PRN IV DECREASED GLUCOSE; Start 04/01/17 at 05:00 Glucagon (Glucagen) 1 mg Q15M PRN IM DECREASED GLUCOSE; Start 04/01/17 at 05:00 Glucose 15 gm 15 gm Q15M PRN BUCCAL DECREASED GLUCOSE; Start 04/01/17 at 05:00 Sodium Chloride (NS) 1,000 ml @ 100 mls/hr Q10H IV ; Start 04/01/17 at 05:33; Stop 04/01/17 at 23:00 Ondansetron HCl (Zofran Inj) 4 mg Q6H PRN IV NAUSEA AND/OR VOMITING; Start 04/01 at 06:00 Acetaminophen (Tylenol Liquid) 650 mg Q6H PRN PO PAIN LEVEL 1-3 OR FEVER; Start 04/01/17 at 06:00 Morphine Sulfate (morphine) 2 mg Q4H PRN IV PAIN LEVEL 7-10; Start 04/01/17 at 06:00 Lorazepam (Ativan) 0.5 mg Q4H PRN IV ANXIETY; Start 04/01/17 at 06:00 Famotidine 20 mg 20 mg DAILY IV ; Start 04/01/17 at 09:00 Cefepime HCl 50 ml @ 100 mls/hr Q12 IVPB ; Start 04/01/17 at 09:00 Norepinephrine 250 ml @ 1.875 mls/ hr TITRATE IV ; Start 04/01/17 at 05:45 Vancomycin HCl/ Sodium Chloride (Vancocin/NS) 150 ml @ 75 mls/hr Q48H IVPB ; Start 04/03/17 at 06:00 DALLAS RUIZ MD Apr 01, 2017 06:22
[2017-04-01] MEDS: SOD CHLORIDE 0.9% 1,000 ML IV SCH ×2 (08:30→15:33)
[2017-04-01] MEDS: FAMOTIDINE 20 MG INJ IV SCH (08:34)
[2017-04-01] MEDS: CEFEPIME 1GM/50 ML (PMX) 50 ML IVPB SCH ×2 (08:37→21:26)
[2017-04-01] MEDS ORDERED: morphine 2 MG INJ IV PRN (10:00)
[2017-04-02] VITALS (11 sets, daily range): BP systolic 116–141; BP diastolic 59–80; PULSE 106–121; RESP 19–21
[2017-04-02 07:54] LABS: BASOPHILS % 0.3 % (0.0-2.0); EOSINOPHILS % 0.3 % (0.0-7.0); HEMATOCRIT 26.6 % (42.0-52.0); HEMOGLOBIN 8.3 g/dl (14.0-18.0); LYMPHOCYTES # 1.8 10^3/ul (0.8-2.9); LYMPHOCYTES % 17.2 % (15.0-51.0); MEAN CORPUSCULAR HEMOGLOBIN 28.1 pg (29.0-33.0); MEAN CORPUSCULAR HGB CONC 31.2 g/dl (32.0-37.0); MEAN CORPUSCULAR VOLUME 90.2 fl (82.0-101.0); MEAN PLATELET VOLUME 10.6 fl (7.4-10.4); MONOCYTE # 0.8 10^3/ul (0.3-0.9); MONOCYTES % 8.1 % (0.0-11.0); NEUTROPHIL # 7.7 10^3/ul (1.6-7.5); NEUTROPHILS % 73.7 % (39.0-77.0); PLATELET COUNT 320 10^3/UL (140-415); RED BLOOD COUNT 2.95 10^6/ul (4.70-6.10); RED CELL DISTRIBUTION WIDTH 16.8 % (11.5-14.5); WHITE BLOOD COUNT 10.4 10^3/ul (4.8-10.8)
[2017-04-02 08:14] LABS: ALBUMIN 2.8 g/dl (3.3-4.9); ALBUMIN/GLOBULIN RATIO 0.75; BILIRUBIN,INDIRECT 0.1 mg/dl (0-1.1); BILIRUBIN,TOTAL 0.1 mg/dl (0.2-1.3); CALCIUM 8.2 mg/dl (8.4-10.2); CREATININE 0.86 mg/dl (0.61-1.24); PHOSPHORUS 3.1 mg/dl (2.5-4.9); POTASSIUM 4.4 mmol/L (3.5-5.1); TOTAL PROTEIN 6.5 g/dl (6.1-8.1)
[2017-04-02] MEDS: FAMOTIDINE 20 MG INJ IV SCH (08:59)
[2017-04-02] MEDS: CEFEPIME 1GM/50 ML (PMX) 50 ML IVPB SCH ×3 (08:59→22:29)
--- NOTE | 2017-04-02 12:48 | PN ---
Date/Time of Note Date/Time of Note DATE: 04/02/17 TIME: 12:42 Assessment/Plan VTE Prophylaxis VTE Prophylaxis Intervention: SCD's Lines/Catheters [facility]from [facility]): Peripheral IV Assessment/Plan Chief Complaint/Hosp Course 1. Septic shock secondary to pneumonia: Improved -Continue broad-spectrum antibiotics -IV fluids -Follow-up respiratory culture, urine culture and blood culture 2. Acute kidney injury-resolved with fluids 3. Hyperkalemia: 2/2 acute renal insufficiency-resolved -Status post Kayexalate 4. Dementia: Patient was probable history of CVA -This is chronic. Continue supportive care -Palliative care consultation 5. Normocytic anemia: Likely secondary to anemia of chronic disease -Monitor 6. Dysphagia: Patient has a PEG tube for feeding -Continue tube feeding 7. Mild hypernatremia -Start D5W Prophylaxis: SCDs Discharge planning: Anticipate DC back to SNF in 1-2 days when hypernatremia resolves and if sepsis continues to resolve Problems: Subjective 24 Hr Interval Summary Subjective hx not possible: pt non-verbal Exam/Review of Systems Vital Signs Vitals Vital Signs Date Time Temp Pulse Resp B/P Pulse Ox O2 Delivery O2 Flow Rate FiO2 04/02/17 11:51 98.2 112 20 126/64 98 04/01/17 20:00 Nasal Cannula 2.0 Intake and Output 04/01/17 04/01/17 04/02/17 14:59 22:59 06:59 Intake Total 270 ml 840 ml Output Total 350 ml 1200 ml Balance -80 ml -360 ml Exam Constitutional: non-verbal Respiratory: clear to auscultation Cardiovascular: regular rate and rhythm Gastrointestinal: soft, No distended Musculoskeletal: nl extremities to inspection Results Result Diagram: 04/02/17 0734 04/02/17 0734 Results 24 hrs Laboratory Tests Test 04/02/17 07:34 White Blood Count 10.4 # Red Blood Count 2.95 #L Hemoglobin 8.3 #L Hematocrit 26.6 #L Mean Corpuscular Volume 90.2 Mean Corpuscular Hemoglobin 28.1 L Mean Corpuscular Hemoglobin Concent 31.2 L Red Cell Distribution Width 16.8 H Platelet Count 320 # Mean Platelet Volume 10.6 H Neutrophils % 73.7 Lymphocytes % 17.2 Monocytes % 8.1 Eosinophils % 0.3 Basophils % 0.3 Nucleated Red Blood Cells % 0.0 Neutrophils # 7.7 H Lymphocytes # 1.8 Monocytes # 0.8 Eosinophils # 0.0 Basophils # 0.0 Nucleated Red Blood Cells # 0.0 Sodium Level 148 H Potassium Level 4.4 Chloride Level 111 H Carbon Dioxide Level 24 Anion Gap 17 #H Blood Urea Nitrogen 56 #H Creatinine 0.86 # Glucose Level 121 # Lactic Acid Level 1.5 Calcium Level 8.2 L Phosphorus Level 3.1 Magnesium Level 2.3 Total Bilirubin 0.1 L Direct Bilirubin 0.00 Indirect Bilirubin 0.1 Aspartate Amino Transf (AST/SGOT) 51 H Alanine Aminotransferase (ALT/SGPT) 45 Alkaline Phosphatase 106 Total Protein 6.5 # Albumin 2.8 #L Globulin 3.70 H Albumin/Globulin Ratio 0.75 Medications Medications Current Medications Miscellaneous Information 1 ea NOTE XX ; Start 04/01/17 at 05:00 Glucose (Glutose) 15 gm Q15M PRN PO DECREASED GLUCOSE; Start 04/01/17 at 05:00 Glucose (Glutose) 22.5 gm Q15M PRN PO DECREASED GLUCOSE; Start 04/01/17 at 05:00 Dextrose (D50w Syringe) 25 ml Q15M PRN IV DECREASED GLUCOSE; Start 04/01/17 at 05:00 Dextrose (D50w Syringe) 50 ml Q15M PRN IV DECREASED GLUCOSE; Start 04/01/17 at 05:00 Glucagon (Glucagen) 1 mg Q15M PRN IM DECREASED GLUCOSE; Start 04/01/17 at 05:00 Glucose (Glutose) 15 gm Q15M PRN BUCCAL DECREASED GLUCOSE; Start 04/01/17 at 05: 00 Ondansetron HCl (Zofran Inj) 4 mg Q6H PRN IV NAUSEA AND/OR VOMITING; Start 04/01 at 06:00 Acetaminophen (Tylenol Liquid) 650 mg Q6H PRN PO PAIN LEVEL 1-3 OR FEVER; Start 04/01/17 at 06:00 Lorazepam (Ativan) 0.5 mg Q4H PRN IV ANXIETY; Start 04/01/17 at 06:00 Famotidine 20 mg 20 mg DAILY IV Last administered on 04/02/17 08:59; Admin Dose 20 MG; Start 04/01/17 at 09:00 Cefepime HCl 50 ml @ 100 mls/hr Q12 IVPB Last administered on 8/6/17at 10:22; Admin Dose 100 MLS/HR; Start 04/01/17 at 09:00 Norepinephrine 250 ml @ 1.875 mls/ hr TITRATE IV ; Start 04/01/17 at 05:45; Status Future Hold Vancomycin HCl/ Sodium Chloride (Vancocin/NS) 150 ml @ 75 mls/hr Q48H IVPB ; Start 04/03/17 at 06:00 Morphine Sulfate (morphine) 2 mg Q4H PRN IV PAIN LEVEL 7-10; Start 04/01/17 at 10:00 NANCY BISWAS Apr 02, 2017 12:48
[2017-04-02] MEDS ORDERED: DEXTROSE 5% 1,000 ML IV SCH (13:00)
[2017-04-02] MEDS ORDERED: SOD CHLORIDE 0.9% 500 ML IV ONE (14:30)
[2017-04-02] MEDS: SOD CHLORIDE 0.9% 1,000 ML IV SCH (14:30)
[2017-04-02] MEDS: VANCOMYCIN 1 GM in NS 250 ML IVPB SCH (16:50)
[2017-04-03] VITALS (12 sets, daily range): BP systolic 123–144; BP diastolic 61–79; PULSE 103–120; RESP 19–21
[2017-04-03] MEDS: SOD CHLORIDE 0.9% 1,000 ML IV SCH ×2 (00:48→09:38)
[2017-04-03 05:49] LABS: BASOPHILS % 0.3 % (0.0-2.0); EOSINOPHILS # 0.1 10^3/ul (0.0-0.5); HEMATOCRIT 25.5 % (42.0-52.0); LYMPHOCYTES # 1.7 10^3/ul (0.8-2.9); LYMPHOCYTES % 21.7 % (15.0-51.0); MEAN CORPUSCULAR HEMOGLOBIN 27.8 pg (29.0-33.0); MEAN CORPUSCULAR HGB CONC 31.4 g/dl (32.0-37.0); MEAN CORPUSCULAR VOLUME 88.5 fl (82.0-101.0); MEAN PLATELET VOLUME 10.1 fl (7.4-10.4); MONOCYTE # 0.7 10^3/ul (0.3-0.9); MONOCYTES % 8.8 % (0.0-11.0); NEUTROPHIL # 5.4 10^3/ul (1.6-7.5); NEUTROPHILS % 67.8 % (39.0-77.0); PLATELET COUNT 309 10^3/UL (140-415); RED BLOOD COUNT 2.88 10^6/ul (4.70-6.10); RED CELL DISTRIBUTION WIDTH 16.2 % (11.5-14.5)
[2017-04-03] MEDS ORDERED: VANCOMYCIN 750 MG in SOD CHLORIDE 0.9% 150 ML IVPB SCH (06:00)
[2017-04-03 06:29] LABS: CALCIUM 8.1 mg/dl (8.4-10.2); CREATININE 0.75 mg/dl (0.61-1.24); POTASSIUM 4.2 mmol/L (3.5-5.1)
[2017-04-03] MEDS: CEFEPIME 1GM/50 ML (PMX) 50 ML IVPB SCH ×2 (09:37→21:32)
[2017-04-03] MEDS: FAMOTIDINE 20 MG INJ IV SCH (09:37)
[2017-04-03] MEDS: VANCOMYCIN 1 GM in NS 250 ML IVPB SCH (15:16)
--- NOTE | 2017-04-03 16:20 | PN ---
Date/Time of Note Date/Time of Note DATE: 04/03/17 TIME: 16:18 Assessment/Plan VTE Prophylaxis VTE Prophylaxis Intervention: SCD's Lines/Catheters [facility] Per[facility] IV Urinary Cath still in place: Yes Reason Cath still needed: urinary retention Assessment/Plan Assessment/Plan 1. Septic shock secondary to pneumonia: Improved -Continue broad-spectrum antibiotics -IV fluids -Follow-up respiratory culture, urine culture and blood culture 2. Acute kidney injury-resolved with fluids 3. Hyperkalemia: 2/2 acute renal insufficiency-resolved -Status post Kayexalate 4. Dementia: Patient was probable history of CVA -This is chronic. Continue supportive care -Palliative care consultation 5. Normocytic anemia: Likely secondary to anemia of chronic disease -Monitor 6. Dysphagia: Patient has a PEG tube for feeding -Continue tube feeding 7. Mild hypernatremia -Start D5W Prophylaxis: SCDs Discharge planning: Anticipate DC back to SNF in 1-2 days when hypernatremia resolves and if sepsis continues to resolve Subjective 24 Hr Interval Summary Free Text/Dictation no acute events, BP stable , on IVF NS at 100 cc/hr Exam/Review of Systems Vital Signs Vitals Vital Signs Date Time Temp Pulse Resp B/P Pulse Ox O2 Delivery O2 Flow Rate FiO2 04/03/17 15:31 97.6 109 20 144/74 98 04/03/17 08:15 Nasal Cannula 2.0 Intake and Output 04/02/17 04/02/17 04/03/17 15:00 23:00 07:00 Intake Total 50 ml 1630 ml 2040 ml Output Total 1900 ml 800 ml Balance 50 ml -270 ml 1240 ml Exam Constitutional: non-verbal Respiratory: clear to auscultation Cardiovascular: regular rate and rhythm Gastrointestinal: soft, No distended Musculoskeletal: nl extremities to inspection Results Result Diagram: 04/03/17 0534 04/03/17 0534 Results 24 hrs Laboratory Tests Test 04/03/17 05:34 White Blood Count 8.0 # Red Blood Count 2.88 L Hemoglobin 8.0 L Hematocrit 25.5 L Mean Corpuscular Volume 88.5 Mean Corpuscular Hemoglobin 27.8 L Mean Corpuscular Hemoglobin Concent 31.4 L Red Cell Distribution Width 16.2 H Platelet Count 309 Mean Platelet Volume 10.1 Neutrophils % 67.8 Lymphocytes % 21.7 Monocytes % 8.8 Eosinophils % 1.0 Basophils % 0.3 Nucleated Red Blood Cells % 0.0 Neutrophils # 5.4 Lymphocytes # 1.7 Monocytes # 0.7 Eosinophils # 0.1 Basophils # 0.0 Nucleated Red Blood Cells # 0.0 Sodium Level 145 H Potassium Level 4.2 Chloride Level 110 Carbon Dioxide Level 23 Anion Gap 16 Blood Urea Nitrogen 38 #H Creatinine 0.75 Glucose Level 120 Calcium Level 8.1 L Medications Medications Current Medications Miscellaneous Information 1 ea NOTE XX ; Start 04/01/17 at 05:00 Glucose (Glutose) 15 gm Q15M PRN PO DECREASED GLUCOSE; Start 04/01/17 at 05:00 Glucose (Glutose) 22.5 gm Q15M PRN PO DECREASED GLUCOSE; Start 04/01/17 at 05:00 Dextrose (D50w Syringe) 25 ml Q15M PRN IV DECREASED GLUCOSE; Start 04/01/17 at 05:00 Dextrose (D50w Syringe) 50 ml Q15M PRN IV DECREASED GLUCOSE; Start 04/01/17 at 05:00 Glucagon (Glucagen) 1 mg Q15M PRN IM DECREASED GLUCOSE; Start 04/01/17 at 05:00 Glucose (Glutose) 15 gm Q15M PRN BUCCAL DECREASED GLUCOSE; Start 04/01/17 at 05: 00 Ondansetron HCl (Zofran Inj) 4 mg Q6H PRN IV NAUSEA AND/OR VOMITING; Start 04/01 at 06:00 Acetaminophen (Tylenol Liquid) 650 mg Q6H PRN PO PAIN LEVEL 1-3 OR FEVER; Start 04/01/17 at 06:00 Lorazepam (Ativan) 0.5 mg Q4H PRN IV ANXIETY; Start 04/01/17 at 06:00 Famotidine 20 mg 20 mg DAILY IV Last administered on 04/03/17 09:37; Admin Dose 20 MG; Start 04/01/17 at 09:00 Cefepime HCl (Maxipime 1gm/50 ml (Pmx)) 50 ml @ 100 mls/hr Q12 IVPB Last administered on 04/03/17 09:37; Admin Dose 100 MLS/HR; Start 04/01/17 at 09:00 Morphine Sulfate 2 mg 2 mg Q4H PRN IV PAIN LEVEL 7-10; Start 04/01/17 at 10:00 Sodium Chloride 1,000 ml @ 100 mls/hr Q10H IV Last administered on 04/03/17 09 :38; Admin Dose 100 MLS/HR; Start 04/02/17 at 14:30 Vancomycin HCl (Vancocin) 250 ml @ 125 mls/hr Q24H IVPB Last administered on 15:16; Admin Dose 125 MLS/HR; Start 04/02/17 at 16:00 Miscellaneous Information (*Rx Drug Level Order Reminder*) VANCO TROUGH @ 1, 500 ON... ONCE ONCE XX ; Start 04/04/17 at 15:00; Stop 04/04/17 at 15:01 MIGUEL ANGEL WU MD Apr 03, 2017 16:20
[2017-04-04] VITALS (12 sets, daily range): BP systolic 97–147; BP diastolic 51–92; PULSE 100–130; RESP 18–21
[2017-04-04 07:14] LABS: BASOPHILS % 0.3 % (0.0-2.0); EOSINOPHILS # 0.1 10^3/ul (0.0-0.5); EOSINOPHILS % 0.8 % (0.0-7.0); HEMATOCRIT 25.7 % (42.0-52.0); HEMOGLOBIN 8.5 g/dl (14.0-18.0); LYMPHOCYTES # 2.4 10^3/ul (0.8-2.9); LYMPHOCYTES % 20.3 % (15.0-51.0); MEAN CORPUSCULAR HEMOGLOBIN 29.1 pg (29.0-33.0); MEAN CORPUSCULAR HGB CONC 33.1 g/dl (32.0-37.0); MEAN PLATELET VOLUME 10.6 fl (7.4-10.4); MONOCYTE # 1.2 10^3/ul (0.3-0.9); MONOCYTES % 9.8 % (0.0-11.0); NEUTROPHIL # 8.1 10^3/ul (1.6-7.5); NEUTROPHILS % 68.3 % (39.0-77.0); PLATELET COUNT 356 10^3/UL (140-415); RED BLOOD COUNT 2.92 10^6/ul (4.70-6.10); RED CELL DISTRIBUTION WIDTH 15.7 % (11.5-14.5); WHITE BLOOD COUNT 11.9 10^3/ul (4.8-10.8)
[2017-04-04 07:29] LABS: INR 1.12; PROTIME 14.4 Sec (12.2-14.2); PT RATIO 1.1
[2017-04-04 07:30] LABS: PARTIAL THROMBOPLASTIN TIME 41.6 Sec (25.0-35.0)
[2017-04-04 07:43] LABS: ALBUMIN 2.8 g/dl (3.3-4.9); ALBUMIN/GLOBULIN RATIO 0.7; BILIRUBIN,INDIRECT 0.1 mg/dl (0-1.1); BILIRUBIN,TOTAL 0.1 mg/dl (0.2-1.3); CALCIUM 8.3 mg/dl (8.4-10.2); CREATININE 0.73 mg/dl (0.61-1.24); POTASSIUM 4.1 mmol/L (3.5-5.1); TOTAL PROTEIN 6.8 g/dl (6.1-8.1)
[2017-04-04] MEDS: FAMOTIDINE 20 MG INJ IV SCH (09:40)
[2017-04-04] MEDS: SOD CHLORIDE 0.9% 1,000 ML IV SCH (09:40)
[2017-04-04] MEDS: CEFEPIME 1GM/50 ML (PMX) 50 ML IVPB SCH ×2 (09:40→21:17)
--- NOTE | 2017-04-04 12:01 | PN ---
Date/Time of Note Date/Time of Note DATE: 04/04/17 TIME: 11:59 Assessment/Plan VTE Prophylaxis VTE Prophylaxis Intervention: SCD's Lines/Catheters IV C[facility]ter Type (from [facility]): Peripheral IV Urinary Cath still in place: Yes Reason Cath still needed: urinary retention Assessment/Plan Assessment/Plan 1. Septic shock secondary to pneumonia: Improved -Continue broad-spectrum antibiotics -IV fluids -Follow-up respiratory culture, urine culture and blood culture 2. Acute kidney injury-resolved with fluids 3. Hyperkalemia: 2/2 acute renal insufficiency-resolved -Status post Kayexalate 4. Dementia: Patient was probable history of CVA -This is chronic. Continue supportive care -Palliative care consultation 5. Normocytic anemia: Likely secondary to anemia of chronic disease -Monitor 6. Dysphagia: Patient has a PEG tube for feeding -Continue tube feeding 7. Mild hypernatremia -Start D5W Prophylaxis: SCDs Discharge planning: Anticipate DC back to SNF in 1-2 days Subjective 24 Hr Interval Summary Free Text/Dictation non verbal , on Tube feeding, getting IV abx for PNA Exam/Review of Systems Vital Signs Vitals Vital Signs Date Time Temp Pulse Resp B/P Pulse Ox O2 Delivery O2 Flow Rate FiO2 04/04/17 11:37 100.3 117 19 140/68 98 04/03/17 20:00 Nasal Cannula 2.0 Intake and Output 04/03/17 04/03/17 04/04/17 15:00 23:00 07:00 Intake Total 50 ml 1990 ml 1490 ml Output Total 1800 ml 1000 ml Balance 50 ml 190 ml 490 ml Exam Constitutional: non-verbal Respiratory: clear to auscultation Cardiovascular: regular rate and rhythm Gastrointestinal: soft, No distended Musculoskeletal: nl extremities to inspection Results Result Diagram: 04/04/1728 04/04/1728 Results 24 hrs Laboratory Tests Test 04/04/17 06:28 White Blood Count 11.9 #H Red Blood Count 2.92 L Hemoglobin 8.5 L Hematocrit 25.7 L Mean Corpuscular Volume 88.0 Mean Corpuscular Hemoglobin 29.1 Mean Corpuscular Hemoglobin Concent 33.1 Red Cell Distribution Width 15.7 H Platelet Count 356 Mean Platelet Volume 10.6 H Neutrophils % 68.3 Lymphocytes % 20.3 Monocytes % 9.8 Eosinophils % 0.8 Basophils % 0.3 Nucleated Red Blood Cells % 0.0 Neutrophils # 8.1 H Lymphocytes # 2.4 Monocytes # 1.2 H Eosinophils # 0.1 Basophils # 0.0 Nucleated Red Blood Cells # 0.0 Prothrombin Time 14.4 H Prothrombin Time Ratio 1.1 INR International Normalized Ratio 1.12 Activated Partial Thromboplast Time 41.6 H Sodium Level 141 Potassium Level 4.1 Chloride Level 104 Carbon Dioxide Level 24 Anion Gap 17 H Blood Urea Nitrogen 28 H Creatinine 0.73 Glucose Level 103 Calcium Level 8.3 L Total Bilirubin 0.1 L Direct Bilirubin 0.00 Indirect Bilirubin 0.1 Aspartate Amino Transf (AST/SGOT) 65 H Alanine Aminotransferase (ALT/SGPT) 71 H Alkaline Phosphatase 200 #H Total Protein 6.8 Albumin 2.8 L Globulin 4.00 H Albumin/Globulin Ratio 0.70 Medications Medications Current Medications Miscellaneous Information 1 ea NOTE XX ; Start 04/01/17 at 05:00 Glucose (Glutose) 15 gm Q15M PRN PO DECREASED GLUCOSE; Start 04/01/17 at 05:00 Glucose (Glutose) 22.5 gm Q15M PRN PO DECREASED GLUCOSE; Start 04/01/17 at 05:00 Dextrose (D50w Syringe) 25 ml Q15M PRN IV DECREASED GLUCOSE; Start 04/01/17 at 05:00 Dextrose (D50w Syringe) 50 ml Q15M PRN IV DECREASED GLUCOSE; Start 04/01/17 at 05:00 Glucagon (Glucagen) 1 mg Q15M PRN IM DECREASED GLUCOSE; Start 04/01/17 at 05:00 Glucose (Glutose) 15 gm Q15M PRN BUCCAL DECREASED GLUCOSE; Start 04/01/17 at 05: 00 Ondansetron HCl (Zofran Inj) 4 mg Q6H PRN IV NAUSEA AND/OR VOMITING; Start 04/01 at 06:00 Acetaminophen (Tylenol Liquid) 650 mg Q6H PRN PO PAIN LEVEL 1-3 OR FEVER; Start 04/01/17 at 06:00 Lorazepam (Ativan) 0.5 mg Q4H PRN IV ANXIETY; Start 04/01/17 at 06:00 Famotidine 20 mg 20 mg DAILY IV Last administered on 04/04/17t 09:40; Admin Dose 20 MG; Start 04/01/17 at 09:00 Cefepime HCl (Maxipime 1gm/50 ml (Pmx)) 50 ml @ 100 mls/hr Q12 IVPB Last administered on 04/04/17 09:40; Admin Dose 100 MLS/HR; Start 04/01/17 at 09:00 Morphine Sulfate 2 mg 2 mg Q4H PRN IV PAIN LEVEL 7-10; Start 04/01/17 at 10:00 Sodium Chloride 1,000 ml @ 50 mls/hr Q20H IV Last administered on 04/04/17 09: 40; Admin Dose 50 MLS/HR; Start 04/02/17 at 14:30 Vancomycin HCl (Vancocin) 250 ml @ 125 mls/hr Q24H IVPB Last administered on 15:16; Admin Dose 125 MLS/HR; Start 04/02/17 at 16:00 Miscellaneous Information (*Rx Drug Level Order Reminder*) VANCO TROUGH @ 1, 500 ON... ONCE ONCE XX ; Start 04/04/17 at 15:00; Stop 04/04/17 at 15:01 MIGUEL ANGEL WU MD Apr 04, 2017 12:01
[2017-04-04] MEDS: VANCOMYCIN 1 GM in NS 250 ML IVPB SCH (16:41)
[2017-04-05] VITALS (11 sets, daily range): BP systolic 131–154; BP diastolic 67–80; PULSE 100–120; RESP 18–21
[2017-04-05] MEDS: SOD CHLORIDE 0.9% 1,000 ML IV SCH ×2 (09:01→16:41)
[2017-04-05] MEDS: CEFEPIME 1GM/50 ML (PMX) 50 ML IVPB SCH ×2 (09:02→20:38)
[2017-04-05] MEDS: FAMOTIDINE 20 MG TAB GTB SCH (09:09)
--- NOTE | 2017-04-05 13:24 | PDOCDIS ---
Discharge Instructions CONDITION Patient Condition: Good HOME CARE INSTRUCTIONS: Special Diet: gtube feeding ACTIVITY: Activity Restrictions: Slowly Increase Activity Rest between Activity Avoid heavy lifting Avoid Heavy Housework FOLLOW UP/APPOINTMENTS Follow-up Plan follow [facility] with [facility] MIGUEL ANGEL WU MD Apr 05, 2017 13:24
[2017-04-05] MEDS ORDERED: VANCOMYCIN 1.25 GM in SOD CHLORIDE 0.9% 250 ML IVPB SCH (14:00)
--- NOTE | 2017-04-05 17:01 | PN ---
Date/Time of Note Date/Time of Note DATE: 04/05/17 TIME: 17:00 Assessment/Plan VTE Prophylaxis VTE Prophylaxis Intervention: SCD's Lines/Catheters [facility] ([facility] Peripheral IV Urinary Cath still in place: Yes Reason Cath still needed: urinary retention Assessment/Plan Assessment/Plan 1. Septic shock secondary to pneumonia: Improved -Continue broad-spectrum antibiotics -IV fluids -Follow-up respiratory culture, urine culture and blood culture 2. Acute kidney injury-resolved with fluids 3. Hyperkalemia: 2/2 acute renal insufficiency-resolved -Status post Kayexalate 4. Dementia: Patient was probable history of CVA -This is chronic. Continue supportive care -Palliative care consultation 5. Normocytic anemia: Likely secondary to anemia of chronic disease -Monitor 6. Dysphagia: Patient has a PEG tube for feeding -Continue tube feeding 7. Mild hypernatremia -Start D5W Prophylaxis: SCDs Discharge planning: Anticipate DC back to SNF tomorrow Subjective 24 Hr Interval Summary Free Text/Dictation no acute events, BP stable ,afebrile Exam/Review of Systems Vital Signs Vitals Vital Signs Date Time Temp Pulse Resp B/P Pulse Ox O2 Delivery O2 Flow Rate FiO2 04/05/17 16:05 98.2 115 20 134/76 95 04/05/17 08:00 Nasal Cannula 2.0 Intake and Output 04/04/17 04/04/17 04/05/17 15:00 23:00 07:00 Intake Total 50 ml 915 ml 840 ml Output Total 700 ml 1275 ml Balance 50 ml 215 ml -435 ml Exam Constitutional: non-verbal Respiratory: clear to auscultation Cardiovascular: regular rate and rhythm Gastrointestinal: soft, No distended Musculoskeletal: nl extremities to inspection Results Result Diagram: 04/04/1762704/04/17627 Medications Medications Current Medications Miscellaneous Information 1 ea NOTE XX ; Start 04/01/17 at 05:00 Glucose (Glutose) 15 gm Q15M PRN PO DECREASED GLUCOSE; Start 04/01/17 at 05:00 Glucose (Glutose) 22.5 gm Q15M PRN PO DECREASED GLUCOSE; Start 04/01/17 at 05:00 Dextrose (D50w Syringe) 25 ml Q15M PRN IV DECREASED GLUCOSE; Start 04/01/17 at 05:00 Dextrose (D50w Syringe) 50 ml Q15M PRN IV DECREASED GLUCOSE; Start 04/01/17 at 05:00 Glucagon (Glucagen) 1 mg Q15M PRN IM DECREASED GLUCOSE; Start 04/01/17 at 05:00 Glucose (Glutose) 15 gm Q15M PRN BUCCAL DECREASED GLUCOSE; Start 04/01/17 at 05: 00 Ondansetron HCl (Zofran Inj) 4 mg Q6H PRN IV NAUSEA AND/OR VOMITING; Start 04/01 at 06:00 Acetaminophen (Tylenol Liquid) 650 mg Q6H PRN PO PAIN LEVEL 1-3 OR FEVER; Start 04/01/17 at 06:00 Lorazepam 0.5 mg 0.5 mg Q4H PRN IV ANXIETY; Start 04/01/17 at 06:00 Cefepime HCl (Maxipime 1gm/50 ml (Pmx)) 50 ml @ 100 mls/hr Q12 IVPB Last administered on 04/05/17 09:02; Admin Dose 100 MLS/HR; Start 04/01/17 at 09:00 Morphine Sulfate 2 mg 2 mg Q4H PRN IV PAIN LEVEL 7-10; Start 04/01/17 at 10:00 Sodium Chloride (NS) 1,000 ml @ 50 mls/hr Q20H IV Last administered on 09:01; Admin Dose 50 MLS/HR; Start 04/02/17 at 14:30 Famotidine 20 mg 20 mg DAILY GTB Last administered on 04/05/17 09:09; Admin Dose 20 MG; Start 04/05/17 at 09:00 Vancomycin HCl/ Sodium Chloride (Vancocin/NS) 250 ml @ 83.333 mls/ hr Q24H IVPB Last administered on 04/05/17 16:00; Admin Dose 83.333 MLS/HR; Start at 14:00 MIGUEL ANGEL WU MD Apr 05, 2017 17:01
[2017-04-06] VITALS: PULSE 111
[2017-04-06 00:43] VITALS: BP 116/58; RESP 18
[2017-04-06 04:00] VITALS: PULSE 110
[2017-04-06 04:29] VITALS: BP 131/80; RESP 18
[2017-04-06 07:52] VITALS: BP 133/77; RESP 17
[2017-04-06 08:00] VITALS: PULSE 109
[2017-04-06] MEDS: FAMOTIDINE 20 MG TAB GTB SCH (09:20)
[2017-04-06] MEDS: CEFEPIME 1GM/50 ML (PMX) 50 ML IVPB SCH (09:20)
--- NOTE | 2017-04-07 23:38 | DS ---
Date/Time of Note Date/Time of Note DATE: 04/07/17 TIME: 23:34 Discharge Summary Admission/Discharge Info Admit Date/Time Apr 01, 2017 at 05:39 Discharge Date/Time Apr 06, 2017 at 10:55 Discharge Diagnosis 1. Septic shock secondary to pneumonia: treated for HCAP 2. Acute kidney injury-resolved with fluids 3. Hyperkalemia: 2/2 acute renal insufficiency-resolved -Status post Kayexalate 4. Dementia: Patient was probable history of CVA 5. Normocytic anemia: Likely secondary to anemia of chronic disease 6. Dysphagia: Patient has a PEG tube for feeding 7. Mild hypernatremia Patient Condition: Good Consults Dietary consult Procedures None Hx of Present Illness This is an 81-year-old male with a possible history of CVA, dysphagia status post PEG tube for feeding, dementia, anemia and pneumonia who [facility] after it was noted that he had bloody mucus when suctioned. Patient is not able to provide history and as such information is gathered from chart review and from the ER physician and notes. Patient was reset actually admitted here to [facility] for pneumonia and he was discharged about 3 weeks ago. When he presented to the ER today, he was hypotensive with a blood pressure of 73/51. Chest x-ray showed emphysema, increased density in the left lower lobe is again seen consistent with infiltrate/pneumonia, but not significantly changed from the chest x-ray about a month ago. Also noted on the chest x-ray was minimal patchy density in the right lung base. Labs show a WBC of 20,000, potassium 5.9, BUN 87, creatinine 1.92, which is an increase from 0.8 during last admission. Sodium was 147, lactic acid 4.4, hemoglobin 12.3 and platelet count 500. . Hospital Course pt presented wtih septic shock due to PNA, he came from SNF< due to that he was treated with IV abx Zosyn and vancomycin for HCAP.he was continued on tube feeding. he had ERWIN due to sepsis which was resolved with IVF and IV abx. he remained symptoms free and discharged back to [facility] with PO abx levaquin He was full code on POLST form and family was advised to talk to his PMD Dr.Michael Carmen at [facility], Home Meds Active Scripts Bisacodyl* (Bisacodyl*) 10 Mg Supp, 10 MG KS DAILY Y for CONSTIPATION for 1 Day , SUPP Prov:JUAN MANUEL MURRAY MD 03/06/17 Aspirin (Aspirin) 81 Mg Chew, 81 MG GTB DAILY for 1 Day, TAB Prov:JUAN MANUEL MURRAY MD 03/06/17 Albuterol Sulfate* (Albuterol Sulfate* Neb) 0.083%-3 Ml Neb, 2.5 MG HHN Q2H RESP THERAPY Y for SHORTNESS OF BREATH for 1 Day Prov:JUAN MANUEL MURRAY MD 03/06/17 Reported Medications Metoprolol Tartrate* (Lopressor*) 50 Mg Tab, 50 MG PO BID, #60 TAB 04/01/17 Levetiracetam* (Keppra*) 500 Mg/5 Ml Solution, 500 MG PO BID, BOTTLE 04/01/17 Levalbuterol Hcl* (Levalbuterol Hcl*) 1.25 Mg/3 Ml Vial.neb, INHALATION Q6H Y for WHEEZING AND SOB, VIAL 04/01/17 Acetaminophen* (Acetaminophen* Susp) 325 Mg/10.15 Ml Solution, 325 MG PO Q4H Y for PAIN OR TEMP ABOVE 38C, ML 04/01/17 Docusate Sodium* (Colace* Liq) 50 Mg/5 Ml Liquid, 100 MG GTB BID, EA 04/01/17 Ascorbic Acid* (Ascorbic Acid*) Unknown Strength Syrup, 0 PO DAILY, #75 ML 04/01/17 Zinc Sulfate* (Zinc Sulfate*) 220 Mg Cap, 220 MG PO DAILY, CAP 04/01/17 Discontinued Scripts Magnesium Hydroxide* (York' MOM*) 30 Ml Susp, 30 ML GTB BID for 1 Day Prov:JUAN MANUEL MURRAY MD 03/06/17 Acetaminophen* (Acephen*) 650 Mg Supp, 650 MG KS Q4H Y for PAIN LEVEL 1-3 OR FEVER for 1 Day, SUPP Prov:JUAN MANUEL MURRAY MD 03/06/17 [Vancomycin Iv Per Pharmacy] 1 EA EACH No Conflict Check, 0 EA XX .PER PROTOCOL for 1 Day Prov:JUAN MANUEL MURRAY MD 03/06/17 Follow-up Plan Follow up with his PMD physician at [facility]. he was full code on POLST note on discharge Primary Care Provider Kermit Agudelo MD Time spent on discharge: > 30 minutes Pending Labs Laboratory Tests Test 04/07/17 09:16 Lab Scanned Report REFERENCE [id number] MIGUEL ANGEL WU MD Apr 07, 2017 23:38
== END 2017-04-06 10:55 | DRG 871 ==
LOC: E/R 02:18 → MS4 05:39
PROVIDERS: ADMIT Internal Medicine; ATTEND Internal Medicine
DX: A41.9 Sepsis, unspecified organism (principal); R65.21 Severe sepsis with septic shock; N17.9 Acute kidney failure, unspecified; J18.9 Pneumonia, unspecified organism; E87.0 Hyperosmolality and hypernatremia; K92.0 Hematemesis; J43.9 Emphysema, unspecified; E87.5 Hyperkalemia; F03.90 Unspecified dementia, unspecified severity, without behavioral disturbance, psychotic disturbance, mood disturbance, and anxiety; R13.10 Dysphagia, unspecified; Z93.1 Gastrostomy status; D64.9 Anemia, unspecified; Y95 Nosocomial condition; Z86.73 Personal history of transient ischemic attack (TIA), and cerebral infarction without residual deficits
CPT/HCPCS: 36415; 36600; 71010; 80048; 80053; 80202; 81001; 81003; 82803; 82962; 83605; 83690; 83735; 84100; 84484; 85025; 85610; 85730; 87040; 87081; 87086; 93005; 94664; 96365; 96366; 96375; J0692; J2185; J3370; J7030; J7040; J7050; J7070